=== PATIENT | female | born 1975 | race African-American/Black ===

== ENCOUNTER → 2023-01-31 10:18 | Outpatient (CLI) | payer SELFPAY ==
--- NOTE | ~2023-01-31 | US_ITS ---
Renal-Bladder ultrasound Clinical History: Abnormal findings of blood chemistry Technique: Real-time sonographic imaging of the kidneys and urinary bladder was performed. Findings: The right kidney measures 9.8 cm in length and the left kidney measures 9.2 cm. There is no hydronephrosis or renal calculus identified. Renal cortical echogenicity is mildly hyperechoic. No r enal mass lesion is identified. The urinary bladder is moderately distended at the time of this exam. No intraluminal echoes are iden tified. No abnormal wall thickening is seen. Impression: No hydronephrosis. Increased renal echogenicity suggest chronic medical renal disease. Reviewed, dictated and finalized at location . Impression: No hydronephrosis. Increased renal echogenicity suggest chronic medical renal disease.
== END ==
PROVIDERS: PCP Emergency Medicine; Visit Provider Internal Medicine Nephrology
DX: I10 Essential (primary) hypertension (principal); R79.89 Other specified abnormal findings of blood chemistry
CPT/HCPCS: 76775

== ENCOUNTER 2023-08-08 08:55 | Outpatient (CLI) | payer BC, SELFPAY ==
[2023-08-08 09:13] LABS: Basophils Percent Auto 0.3 % (0.2-1.2); Eosinophils Absolute Auto 0.3 K/mm3 (0-0.3); Eosinophils Percent Auto 3.8 % (0-4.4); Hematocrit 36.1 % (37.0-47.0); Hemoglobin 11.7 g/dL (12.0-15.0); Immature Granulocyte Absolute 0.01 K/mm3 (0.00-0.031); Immature Granulocyte Percent A 0.2 % (0-0.5); Lymphocytes Absolute Auto 1.92 K/mm3 (0.9-3.2); Lymphocytes Percent Auto 29.3 % (18.3-44.2); Mean Corpuscular HGB Conc 32.4 g/dl (32-36); Mean Corpuscular Hemoglobin 27.1 pg (26-34); Mean Corpuscular Volume 83.6 fl (80-100); Mean Platelet Volume 10.5 fl (7.4-10.4); Monocytes Absolute Auto 0.4 K/mm3 (0.1-0.6); Monocytes Percent Auto 6.7 % (2.6-8.5); Neutrophils Absolute Auto 3.9 K/mm3 (1.3-6.7); Neutrophils Percent Auto 59.7 % (45.5-73.1); Platelet Count Result 252 k/mm3 (150-375); Red Blood Count 4.32 M/mm3 (4.2-5.4); Red Cell Distribution Width 12.8 % (11.5-14.5); White Blood Count 6.6 K/mm3 (4.5-10.0)
[2023-08-08 10:18] LABS: Alanine Aminotransferase 15 U/L (6-35); Albumin Level 4.3 g/dL (3.5-5.1); Alkaline Phosphatase 52 U/L (38-126); Anion Gap 10 mmol/L (8-16); Aspartate Amino Transferase 24 U/L (14-36); Bilirubin,Total 0.6 mg/dL (0.2-1.3); Blood Urea Nitrogen 25 mg/dL (7-17); Calcium 10.1 mg/dL (8.4-10.2); Carbon Dioxide 26 mmol/L (22-30); Chloride 103 mmol/L (98-107); Estimated Glomerular Filt Rate 34; Glucose 130 mg/dL (65-110); Immunoglobulin G 833 mg/dL (700-1600); Potassium 3.5 mmol/L (3.4-5.0); Sodium 139 mmol/L (137-145)
[2023-08-08 10:22] LABS: Immunoglobulin M < 25 mg/dL (40-230)
[2023-08-08 10:34] LABS: Immunoglobulin A 1510 mg/dL (70-400)
[2023-08-10 16:33] LABS: Abnormal Protein Band 1 1.5 g/dL; Albumin 3.5 g/dL (3.8-4.8); Alpha 1 Globulin 0.3 g/dL (0.2-0.3); Alpha 2 Globulin 0.6 g/dL (0.5-0.9); Beta 1 Globulin 1.7 g/dL (0.4-0.6); Gamma Globulin 0.8 g/dL (0.8-1.7); Protein, Total 7.2 g/dL (6.1-8.1)
[2023-08-10 21:06] LABS: Kappa\\Lambda Light Chains 0.16 (0.26-1.65); Lambda Light Chain 151.2 mg/L (5.7-26.3)
== END 2023-08-08 08:56 | disposition home or self-care (01) ==
PROVIDERS: PCP Emergency Medicine; Visit Provider Internal Medicine Hematology & Oncology
DX: C90.00 Multiple myeloma not having achieved remission (principal)
CPT/HCPCS: 36415; 80053; 82784; 83883; 84155; 84165; 85025

== ENCOUNTER 2023-09-12 01:28 | Day surgery (SDC) | payer BC, SELFPAY ==
--- NOTE | ~2023-09-12 | BM_ITS ---
EXAMINATION: CCL bone marrow asp w bx diag DATE: 09/12/2023 10:10 INDICATION: Status of remission of multiple myeloma. TECHNIQUE: A time-out was performed to verify the patient's name, date of , and procedure to b e performed. The procedure including the risks, benefits, and alternatives was discussed with the pat ient. Risks discussed included bleeding and infection. The patient understood the risks and agreed to proceed. The skin overlying the left ilium was prepped and draped in usual sterile fashion. Anesth etic was administered with 1% lidocaine subcutaneously. Moderate sedation was achieved with 1 mg Vers ed IV and 100 mcg fentanyl IV. An 11 gauge needle was inserted into the ilium with fluoroscopic guid ance. Bone marrow was aspirated. An 8 gauge needle was then inserted into the ilium with fluoroscopic guidance. A core bone marrow biopsy was obtained. There were no immediate complications. Fluoroscopy exposure time was 0.0 minutes. The total number of images was 18. FINDINGS: Real-time fluoroscopy demonstrates a marker overlying the left posterior superior iliac spi ne. IMPRESSION: 1. Fluoro-guided bone marrow aspiration. 2. Fluoro-guided bone marrow core biopsy. Reviewed, dictated and finalized at location A. HMAN
[2023-09-12 07:51] VITALS: BP 184/117; PULSE 71; RESP 16; TEMP 36.8; O2SAT 100; BMI 24.1
[2023-09-12 08:45] LABS: Basophils Percent Auto 0.3 % (0.2-1.2); Eosinophils Absolute Auto 0.1 K/mm3 (0-0.3); Eosinophils Percent Auto 2.3 % (0-4.4); Hematocrit 43.2 % (37.0-47.0); Hemoglobin 13.4 g/dL (12.0-15.0); Immature Granulocyte Absolute 0.02 K/mm3 (0.00-0.031); Immature Granulocyte Percent A 0.3 % (0-0.5); Lymphocytes Absolute Auto 1.95 K/mm3 (0.9-3.2); Lymphocytes Percent Auto 31.4 % (18.3-44.2); Mean Corpuscular Hemoglobin 26.8 pg (26-34); Mean Corpuscular Volume 86.4 fl (80-100); Mean Platelet Volume 11.3 fl (7.4-10.4); Monocytes Absolute Auto 0.4 K/mm3 (0.1-0.6); Monocytes Percent Auto 6.9 % (2.6-8.5); Neutrophils Absolute Auto 3.7 K/mm3 (1.3-6.7); Neutrophils Percent Auto 58.8 % (45.5-73.1); Platelet Count Result 218 k/mm3 (150-375); Red Cell Distribution Width 13.4 % (11.5-14.5); White Blood Count 6.2 K/mm3 (4.5-10.0)
[2023-09-12 08:56] LABS: Prothrombin Time 13.6 Seconds (11.1-14.7)
--- NOTE | 2023-09-12 09:31 | WPDMODSED ---
Moderate Sedation Note-Pt Data Patient Data Diagnosis: Multiple myeloma. Present Complaint: Multiple myeloma. Procedure to be performed/Plan: Fluoro-guided bone marrow biopsy of ilium. Allergies Allergy/AdvReac Type Severity Reaction Status Date / Time No Known Allergies Allergy Verified 09/12/23 07:48 Home Medications Medication Instructions Recorded Confirmed Type drospirenone (contraceptive) 4 mg 4 mg PO DAILY 11/03/21 09/09/23 History (28) tablet (Slynd) clonidine HCl 0.3 mg tablet 0.3 mg PO BID 09/09/23 09/09/23 History hydrochlorothiazide 12.5 mg tablet 12.5 mg PO DAILY 09/09/23 09/09/23 History losartan 50 mg tablet 50 mg PO DAILY 09/09/23 09/09/23 History Sedation/Anesthesia: No previous sedation/anesthesia problems (including family history). [facility] Past Medical History Medical History Anemia Body mass index [BMI] 26.0-26.9, adult (06/14/17) Body mass index [BMI] 27.0-27.9, adult (12/27/17) Elevated glucose Encounter for screening for cardiovascular disorders Fatigue HTN (hypertension), benign Hyperglycemia Periodic health assessment, general screening, adult Vitamin D deficiency Social History Social History Smoking packs per day: 0.5 Smoking cigarettes per day: 10.0 Years smoked: 10 Smoking pack-years: 5.00 Smoking status: Former smoker Tobacco type: cigarettes Smoking end date: 10/17/12 Substance use type: does not use Current Housing: Decline to Answer Concerned About Future Housing: Decline to Answer Difficulty Paying Gas/Electric Bills: Decline to Answer Difficulty Paying for Meds: Decline to Answer Currently Unemployed: Decline to Answer Education: Decline to Answer Difficulty w/ Childcare or Family Care: Decline to Answer Living arrangements: with family Gender identity (if verbalized by the patient): Female Spiritual care concerns: No Mod Sed Physical Exam Physical Exam Pre Procedural Exam: Normal: Appearance, Lungs, Heart Rate, Heart Rhythm and Abdomen Hours since solid foods: 12 Hours since liquid intake: 12 Mallampati Classification: class II Internal Medicine - PN: Obj Da Vital Signs Vital Signs: Vital Signs - 24 hr 09/12/23 07:51 Temperature 36.8 C Pulse Rate 71 Respiratory Rate 16 Blood Pressure 184/117 H Pulse Oximetry 100 Oxygen Delivery Room Air Labs 09/12/23 07:41 Labs: Laboratory Results - last 24 hr 09/12/23 07:41 WBC 6.2 RBC 5.00 Hgb 13.4 Hct 43.2 MCV 86.4 MCH 26.8 MCHC 31.0 L RDW 13.4 Plt Count 218 MPV 11.3 H Immature Gran % (Auto) 0.3 Neut % (Auto) 58.8 Lymph % (Auto) 31.4 [place] % (Auto) 6.9 Eos % (Auto) 2.3 Baso % (Auto) 0.3 Lymph # (Auto) 1.95 [place] # (Auto) 0.4 Eos # (Auto) 0.1 Baso # (Auto) 0.0 Abs Immat Gran (auto) 0.02 Absolute Neuts (auto) 3.7 Absolute Nucleated RBC 0.0 Nucleated RBC % 0.0 PT 13.6 INR 1.0 ASA Classification/Sedation ASA Classification/Sedation ASA Class: II Emergent: No Risks: Risks, benefits and alternatives explained and patient/family accepted plan for sedation. Patient re-evaluated immediately prior to sedation.
[2023-09-12 09:51] LABS: Beta HCG Quantitative < 2.39 mIU/ML
[2023-09-12 10:15] VITALS: BP 146/94; PULSE 56; RESP 16; O2SAT 100
[2023-09-12 10:30] VITALS: BP 137/93; PULSE 52; RESP 15; O2SAT 100
[2023-09-12 10:45] VITALS: BP 131/102; PULSE 51; RESP 16; O2SAT 100
[2023-09-12 11:00] VITALS: BP 130/91; PULSE 49; RESP 10; O2SAT 100
[2023-09-12 11:15] VITALS: BP 155/98; PULSE 48; RESP 12; O2SAT 100
== END 2023-09-12 11:25 | disposition home or self-care (01) ==
PROVIDERS: PCP Emergency Medicine; Referring Provider Internal Medicine Hematology & Oncology; Visit Provider Radiology Diagnostic Radiology
DX: C90.00 Multiple myeloma not having achieved remission (principal); N18.32 Chronic kidney disease, stage 3b; I12.9 Hypertensive chronic kidney disease with stage 1 through stage 4 chronic kidney disease, or unspecified chronic kidney disease; E55.9 Vitamin D deficiency, unspecified; Z87.891 Personal history of nicotine dependence
CPT/HCPCS: 36415; 38222; 84702; 85025; 85610; 88184; 88185; 88305; 88311; 88313; 88342; J1642; J2250; J3010; J7040

== ENCOUNTER 2023-09-22 07:15 | Outpatient (CLI) | payer BC, SELFPAY ==
--- NOTE | ~2023-09-22 | PE_ITS ---
EXAMINATION: PET skull to mid thigh DATE: 09/22/2023 10:36 INDICATION: Multiple myeloma, remission status unspecified. TECHNIQUE: Blood glucose level was 136 mg/dL. 9.961 mCi of 18-fluorodeoxyglucose (18-FDG) was adminis tered i.v. Low dose computed tomography (CT) images were acquired from the base of the brain to the p roximal thighs for attenuation correction and anatomic localization. Automated exposure control was e mployed. Dose-length product (DLP) was 705 mGy-cm. Positron emission tomography (PET) images were acq uired in the same distribution. COMPARISON: None FINDINGS: Head/neck: There are no pathologically enlarged lymph nodes. There is a 3.1 cm nodule in left thyroid lobe with maximum SUV of 4.1. There is no lytic lesion of bone. Chest: There is no pneumonia or pleural effusion. The heart size is normal. No pericardial effusion. There is no lytic lesion of bone. Abdomen/pelvis/proximal thighs: The liver, gallbladder, spleen, pancreas, adrenal glands, and kidneys are normal. There are no dilated loops of bowel. The appendix is normal. There are no pathologically enlarged lymph nodes. There is no ascites. There is no lytic lesion of bone. IMPRESSION: 1. No evidence of multiple myeloma. 2. 3.1 cm left thyroid lobe with increased activity, which may be benign or malignant. Ultrasound-almaz ded fine-needle aspiration is recommended. Reviewed, dictated and finalized at location E. ENTER SUPERVISOR IMPRESSION: 1. No evidence of multiple myeloma. 2. 3.1 cm left thyroid lobe with increased activity, which may be benign or mal ignant. Ultrasound-guided fine-needle aspiration is recommended.
[2023-09-22 08:06] LABS: Glucose Point of Care 136 mg/dl (65-105)
== END 2023-09-22 07:16 | disposition home or self-care (01) ==
PROVIDERS: PCP Emergency Medicine; Visit Provider Internal Medicine Hematology & Oncology
DX: C90.00 Multiple myeloma not having achieved remission (principal)
CPT/HCPCS: 78815; A9552

== ENCOUNTER 2023-10-31 12:32 | Outpatient (CLI) | payer BC, SELFPAY ==
--- NOTE | ~2023-10-31 | US_ITS ---
EXAMINATION: US FNA w image guidance DATE: 10/31/2023 13:53 INDICATION: Thyroid nodule TECHNIQUE: A time-out was performed to verify the patient's name, date of , and procedure to be performed . The procedure and its benefits and risks were discussed with the patient. Risks specifically discus sed included bleeding and infection. The patient understood the risks and agreed to proceed. The neck was prepped and draped in the usual sterile manner. 4 mL 1% lidocaine was used for local anesthesia . 8 passes were made with a 25G needle into the lesion. Appropriate needle location was documented with continuous sonographic guidance. A sterile bandage was applied. There were no immediate compli cations. FINDINGS: Right thyroid lobe measures 5.0 x 1.8 x 2.1 cm. 30 isthmus measures 3 to 4 mm in thickness. The left thyroid lobe measures 5.8 x 2.8 x 3.2 cm. 4.1 x 2.8 x 2.9 cm solid hypoechoic left thyroid nodule whi ch is wider than tall with lobular margins and a few punctate echogenic foci (TI-RADS 5, highly suspi cious , FNA if >=1.0 cm, annual followup is >0.5 cm). There is a 6 mm solid hypoechoic nodule with sm ooth to ill-defined margins and without echogenic foci at the left side of the thyroid isthmus (TI-RA DS 4, moderately suspicious , FNA if >=1.5 cm, annual followup is >=1 cm). Subsequent images demonstr ate biopsy needles advanced into the 4.1 cm TI RADS 5 left thyroid mass. IMPRESSION: 1. Successful ultrasound-guided fine needle aspiration of a 4.1 cm TI RADS 5 left thyroid mass. Reviewed, dictated and finalized at location A. RER IMPRESSION: 1. Successful ultrasound-guided fine needle aspiration of a 4.1 cm TI RADS 5 l eft thyroid mass.
== END 2023-10-31 12:33 | disposition home or self-care (01) ==
LOC: ANHIMG 12:33
PROVIDERS: PCP Emergency Medicine; Visit Provider Internal Medicine Hematology & Oncology
DX: E04.1 Nontoxic single thyroid nodule (principal)
CPT/HCPCS: 10005; 88172; 88173; 88305

== ENCOUNTER 2024-01-02 09:52 | Outpatient (CLI) | payer BC, SELFPAY ==
[2024-01-02 10:16] LABS: Basophils Percent Auto 0.3 % (0.2-1.2); Eosinophils Absolute Auto 0.1 K/mm3 (0-0.3); Eosinophils Percent Auto 2.1 % (0-4.4); Hematocrit 35.8 % (37.0-47.0); Hemoglobin 11.7 g/dL (12.0-15.0); Immature Granulocyte Absolute 0.01 K/mm3 (0.00-0.031); Immature Granulocyte Percent A 0.2 % (0-0.5); Lymphocytes Absolute Auto 2.11 K/mm3 (0.9-3.2); Lymphocytes Percent Auto 32.4 % (18.3-44.2); Mean Corpuscular HGB Conc 32.7 g/dl (32-36); Mean Corpuscular Hemoglobin 27.1 pg (26-34); Mean Corpuscular Volume 83.1 fl (80-100); Mean Platelet Volume 10.5 fl (7.4-10.4); Monocytes Absolute Auto 0.5 K/mm3 (0.1-0.6); Monocytes Percent Auto 7.4 % (2.6-8.5); Neutrophils Absolute Auto 3.8 K/mm3 (1.3-6.7); Neutrophils Percent Auto 57.6 % (45.5-73.1); Platelet Count Result 231 k/mm3 (150-375); Red Blood Count 4.31 M/mm3 (4.2-5.4); Red Cell Distribution Width 13.2 % (11.5-14.5); White Blood Count 6.5 K/mm3 (4.5-10.0)
[2024-01-02 14:10] LABS: Alanine Aminotransferase 14 U/L (6-35); Albumin Level 4.1 g/dL (3.5-5.1); Alkaline Phosphatase 49 U/L (38-126); Anion Gap 8 mmol/L (8-16); Aspartate Amino Transferase 21 U/L (14-36); Bilirubin,Total 0.7 mg/dL (0.2-1.3); Blood Urea Nitrogen 27 mg/dL (7-17); Calcium 10.8 mg/dL (8.4-10.2); Carbon Dioxide 26 mmol/L (22-30); Chloride 106 mmol/L (98-107); Estimated Glomerular Filt Rate 30; Glucose 136 mg/dL (65-110); Potassium 4.2 mmol/L (3.4-5.0); Sodium 140 mmol/L (137-145)
[2024-01-02 14:45] LABS: Immunoglobulin G 846 mg/dL (700-1600)
[2024-01-02 15:38] LABS: Immunoglobulin A 1385 mg/dL (70-400); Immunoglobulin M < 25 mg/dL (40-230)
[2024-01-05 12:08] LABS: Kappa\\Lambda Light Chains 0.13 (0.26-1.65); Lambda Light Chain 156.7 mg/L (5.7-26.3)
[2024-01-05 12:29] LABS: Abnormal Protein Band 1 1.5 g/dL; Albumin 3.6 g/dL (3.8-4.8); Alpha 1 Globulin 0.3 g/dL (0.2-0.3); Alpha 2 Globulin 0.6 g/dL (0.5-0.9); Beta 1 Globulin 1.8 g/dL (0.4-0.6); Gamma Globulin 0.7 g/dL (0.8-1.7); Protein, Total 7.4 g/dL (6.1-8.1)
== END 2024-01-02 09:53 | disposition home or self-care (01) ==
LOC: ANHLAB 09:54
PROVIDERS: PCP Emergency Medicine; Visit Provider Internal Medicine Hematology & Oncology
DX: C90.00 Multiple myeloma not having achieved remission (principal)
CPT/HCPCS: 36415; 80053; 82784; 83883; 84155; 84165; 85025

== ENCOUNTER 2024-03-26 09:20 | Outpatient (CLI) | payer BC, SELFPAY ==
[2024-03-26 09:37] LABS: Basophils Percent Auto 0.5 % (0.2-1.2); Eosinophils Absolute Auto 0.1 K/mm3 (0-0.3); Eosinophils Percent Auto 2.1 % (0-4.4); Hematocrit 34.8 % (37.0-47.0); Hemoglobin 11.5 g/dL (12.0-15.0); Immature Granulocyte Absolute 0.01 K/mm3 (0.00-0.031); Immature Granulocyte Percent A 0.2 % (0-0.5); Lymphocytes Absolute Auto 2.18 K/mm3 (0.9-3.2); Lymphocytes Percent Auto 33.3 % (18.3-44.2); Mean Corpuscular Hemoglobin 27.5 pg (26-34); Mean Corpuscular Volume 83.3 fl (80-100); Mean Platelet Volume 10.5 fl (7.4-10.4); Monocytes Absolute Auto 0.6 K/mm3 (0.1-0.6); Monocytes Percent Auto 8.6 % (2.6-8.5); Neutrophils Absolute Auto 3.6 K/mm3 (1.3-6.7); Neutrophils Percent Auto 55.3 % (45.5-73.1); Platelet Count Result 218 k/mm3 (150-375); Red Blood Count 4.18 M/mm3 (4.2-5.4); Red Cell Distribution Width 12.8 % (11.5-14.5); White Blood Count 6.5 K/mm3 (4.5-10.0)
[2024-03-26 10:42] LABS: Alanine Aminotransferase 12 U/L (6-35); Albumin Level 4.4 g/dL (3.5-5.1); Alkaline Phosphatase 48 U/L (38-126); Anion Gap 8 mmol/L (4-12); Aspartate Amino Transferase 23 U/L (14-36); Bilirubin,Total 0.5 mg/dL (0.2-1.3); Blood Urea Nitrogen 16 mg/dL (7-17); Calcium 10.4 mg/dL (8.4-10.2); Carbon Dioxide 25 mmol/L (22-30); Chloride 106 mmol/L (98-107); Estimated Glomerular Filt Rate 34; Glucose 136 mg/dL (65-110); Potassium 4.1 mmol/L (3.4-5.0); Sodium 139 mmol/L (137-145)
[2024-03-26 11:28] LABS: Immunoglobulin G 808 mg/dL (700-1600)
[2024-03-26 11:32] LABS: Immunoglobulin A 1555 mg/dL (70-400); Immunoglobulin M < 25 mg/dL (40-230)
[2024-03-27 11:58] LABS: Protein, Total 6.9 g/dL (6.1-8.1)
[2024-03-27 14:24] LABS: Kappa\\Lambda Light Chains 0.12 (0.26-1.65); Lambda Light Chain 171.5 mg/L (5.7-26.3)
[2024-03-27 15:59] LABS: Abnormal Protein Band 1 1.6 g/dL (NONE DETECTED); Albumin 3.3 g/dL (3.8-4.8); Alpha 1 Globulin 0.3 g/dL (0.2-0.3); Alpha 2 Globulin 0.6 g/dL (0.5-0.9); Beta 1 Globulin 1.7 g/dL (0.4-0.6); Gamma Globulin 0.7 g/dL (0.8-1.7)
== END 2024-03-26 09:21 | disposition home or self-care (01) ==
LOC: ANHLAB 09:21
PROVIDERS: PCP Emergency Medicine; Visit Provider Internal Medicine Hematology & Oncology
DX: C90.00 Multiple myeloma not having achieved remission (principal)
CPT/HCPCS: 36415; 80053; 82784; 83883; 84155; 84165; 85025

== ENCOUNTER 2024-07-02 08:37 | Outpatient (CLI) | payer BC, SELFPAY ==
[2024-07-02 08:56] LABS: Basophils Percent Auto 0.5 % (0.2-1.2); Eosinophils Absolute Auto 0.2 K/mm3 (0-0.3); Eosinophils Percent Auto 2.8 % (0-4.4); Hematocrit 37.8 % (37.0-47.0); Immature Granulocyte Absolute 0.02 K/mm3 (0.00-0.031); Immature Granulocyte Percent A 0.3 % (0-0.5); Lymphocytes Absolute Auto 1.87 K/mm3 (0.9-3.2); Lymphocytes Percent Auto 30.8 % (18.3-44.2); Mean Corpuscular HGB Conc 31.7 g/dl (32-36); Mean Corpuscular Hemoglobin 27.1 pg (26-34); Mean Corpuscular Volume 85.5 fl (80-100); Monocytes Absolute Auto 0.6 K/mm3 (0.1-0.6); Monocytes Percent Auto 9.1 % (2.6-8.5); Neutrophils Absolute Auto 3.4 K/mm3 (1.3-6.7); Neutrophils Percent Auto 56.5 % (45.5-73.1); Platelet Count Result 226 k/mm3 (150-375); Red Blood Count 4.42 M/mm3 (4.2-5.4); Red Cell Distribution Width 13.3 % (11.5-14.5); White Blood Count 6.1 K/mm3 (4.5-10.0)
[2024-07-02 11:02] LABS: Alanine Aminotransferase 75 U/L (6-35); Albumin Level 4.1 g/dL (3.5-5.1); Alkaline Phosphatase 46 U/L (38-126); Anion Gap 9 mmol/L (4-12); Aspartate Amino Transferase 63 U/L (14-36); Bilirubin,Total 0.6 mg/dL (0.2-1.3); Blood Urea Nitrogen 16 mg/dL (7-17); Calcium 9.7 mg/dL (8.4-10.2); Carbon Dioxide 27 mmol/L (22-30); Chloride 100 mmol/L (98-107); Estimated Glomerular Filt Rate 42; Glucose 125 mg/dL (65-110); Potassium 3.9 mmol/L (3.4-5.0); Sodium 136 mmol/L (137-145)
[2024-07-02 11:47] LABS: Immunoglobulin G 754 mg/dL (700-1600)
[2024-07-02 12:09] LABS: Immunoglobulin A 1571 mg/dL (70-400); Immunoglobulin M < 25 mg/dL (40-230)
[2024-07-04 12:09] LABS: Kappa\\Lambda Light Chains 0.09 (0.26-1.65); Lambda Light Chain 237.6 mg/L (5.7-26.3)
[2024-07-05 03:33] LABS: Protein, Total 6.8 g/dL (6.1-8.1)
[2024-07-05 15:24] LABS: Abnormal Protein Band 1 1.4 g/dL (NONE DETECTED); Albumin 3.3 g/dL (3.8-4.8); Alpha 1 Globulin 0.3 g/dL (0.2-0.3); Alpha 2 Globulin 0.6 g/dL (0.5-0.9); Beta 1 Globulin 1.6 g/dL (0.4-0.6); Gamma Globulin 0.7 g/dL (0.8-1.7)
== END 2024-07-02 08:38 | disposition home or self-care (01) ==
LOC: ANHLAB 08:38
PROVIDERS: PCP Emergency Medicine; Visit Provider Internal Medicine Hematology & Oncology
DX: C90.00 Multiple myeloma not having achieved remission (principal)
CPT/HCPCS: 36415; 80053; 82784; 83883; 84155; 84165; 85025

== ENCOUNTER 2024-12-31 08:38 | Outpatient (CLI) | payer BC, SELFPAY ==
[2024-12-31 08:57] LABS: Basophils Percent Auto 0.5 % (0.2-1.2); Eosinophils Absolute Auto 0.2 K/mm3 (0-0.3); Eosinophils Percent Auto 3.9 % (0-4.4); Hematocrit 44.4 % (37.0-47.0); Hemoglobin 14.5 g/dL (12.0-15.0); Immature Granulocyte Absolute 0.01 K/mm3 (0.00-0.031); Immature Granulocyte Percent A 0.2 % (0-0.5); Lymphocytes Absolute Auto 1.85 K/mm3 (0.9-3.2); Lymphocytes Percent Auto 32.7 % (18.3-44.2); Mean Corpuscular HGB Conc 32.7 g/dl (32-36); Mean Corpuscular Hemoglobin 26.9 pg (26-34); Mean Corpuscular Volume 82.4 fl (80-100); Mean Platelet Volume 10.8 fl (7.4-10.4); Monocytes Absolute Auto 0.5 K/mm3 (0.1-0.6); Monocytes Percent Auto 8.3 % (2.6-8.5); Neutrophils Absolute Auto 3.1 K/mm3 (1.3-6.7); Neutrophils Percent Auto 54.4 % (45.5-73.1); Platelet Count Result 206 k/mm3 (150-375); Red Blood Count 5.39 M/mm3 (4.2-5.4); Red Cell Distribution Width 13.4 % (11.5-14.5); White Blood Count 5.7 K/mm3 (4.5-10.0)
--- OUTSIDE RECORDS SUMMARY | 2024-12-31 09:01 | XMS_ITS | Data Portability ---
Author Organization [facility] [place] Address [address] [place] [address] Care Team Providers Care Cyber Workforce Developer And Manager Name Role Phone KENZIE LARA Primary Care Provider [phone] Assessment Encounter Date Assessment Date Assessment LastModified by Organization Details LastModified Time 04/01/2021 04/01/2021 Annual gynecological exam performed. Patient will come back in a year unless there are new symptoms. Suggest Calcium with Vitamin D if not eating in diet. Patient advised to get annual flu shot. Recommend yearly physicals and preform monthly breast exams. Genetic testing is available for patients with family history of cancer. Engage in safe sexual practices, use condoms. Encouraged to have daily exercise. Avoid tobacco and illicit drugs, moderation of alcohol. If BMI greater than 25 dietary consult advised. If you have any questions please call or email. slynd #4 samples, if works may have rf until next wwe, mammogram order given and encouraged Not available 04/01/2021 10:07:49 04/28/2021 04/28/2021 noel well, f/u pending pathology Not available 04/28/2021 10:03:46 05/10/2022 05/10/2022 Annual gynecological exam performed. Patient will come back in a year unless there are new symptoms. [email or web address] Not available 05/10/2022 10:42:15 05/23/2023 05/23/2023 Annual gynecological exam performed. Patient will come back in a year unless there are new symptoms. [email or web address] Not available 05/23/2023 10:45:57 05/28/2024 05/28/2024 Annual gynecological exam performed. Patient will come back in a year unless there are new symptoms. [email or web address] Not available 05/28/2024 09:34:32 Plan of Treatment Reminders Order Date Submit Date Provider Last Modified By Organization Details Last Modified Time Details Appointments None recorded. Lab None recorded. Referral None recorded. Procedures None recorded. Surgeries None recorded. Imaging MAMMO, screening, digital, bilateral 2023 024 FRANCES [facility], [address], [place], [address], 4 04:02:24 MAMMO, screening, digital, bilateral [email or web address] [place] [address], [address], [place], [address], 4 16:22:48 Medication Orders None recorded. Patient TargetsNo targets recorded. Patient InstructionsNo instructions recorded. Reason for Referral None Reported. Results Created Date Observation Date Name Description Value Unit Range Abnormal Flag Note LastModifiedBy Organization Detail LastModifiedTime 04/01/20 21 04/01/2021 pap, IG + HR HPV image guided Pap, HPV regardless of Pap result SEE RESULT S BELOW CASE REPOR T: Cytol ogy Gynec ologi sanjay Repor t Case: [id number] Autho rylan mclaughlin Provi zach: Taty Petit NP Colle cted: 04/01 1330 Order ing Locat ion: [place] Patho logy Recei janki: 04/02 0151 First Scree n: Strut z, Zafar am, CT Patho logis t: Miroslava Ayala MD Speci men: Scree jose Pap - Image d, Cervi x STATE MENT OF ADEQU ACY: Satis facto ry for evalu ation Trans forma tion zone compo nent absen t FINAL DIAGN OSIS: Negat elvie for Squam ous Intra epith elial Lesio n Endom etria l cells in a woman over 45 years of age Elect josue christianson rita d by Miroslava Ayala MD on 2020 at 2:42 PM ----- ----- ----- ----- ----- ----- ----- ----- ----- ----- ----- ----- ----- ----- ----- ----- ----- ---- HPV RESUL TS: HPV mRNA E6/E7 : No HPV mRNA Detec lindsay NOTE: This high risk HPV mRNA assay detec ts fourt een high- risk HPV types (16, 18, 31, 33, 35, 39, 45, 51, 52, 56, 58, 59, 66, 68) witho ut diffe renti ation . CHART ABLE COMME NT: Note: This speci men was revie wed by a Cytot echno logis t and/o r Patho logis t (as indic ated in this repor t) after evalu ation using the Thinp rep Imagi ng Syste m. CLINI SANJAY INFOR MATIO N: Menst rual Statu s: LMP (if appli cable ): 2020 Clini sanjay Histo ry/Pr eviou s Pap: Type of Neopl domenico (if appli cable ): Other Histo ry: Hormo kade (if appli cable ): PAP EDUCA PATRICK L NOTE: Endom etria l cells after age 45, parti cular ly out of phase or after menop ause, may be assoc iated with zehra n endom etriu m, hormo nal alter ation s and less commo nly, endom etria l/chehalis rine abnor malit ies. Clini sanjay corre galilea n is recom ying d. Not Available [facility] (Lab) [address], [place], [address], 04/03/2021 15:45:27 04/28/20 21 04/28/2021 SURGI SANJAY PATHO LOGY surgical pathology ([facility]) SEE RESULT S BELOW CASE REPOR T: Surgi sanjay Patho logy Repor t Case: [id number] Autho rylan Zhoui zach: Taty Petit NP Colle cted: 04/28 1333 Order ing Locat ion: [place] Patho logy Recei janki: 04/28 2353 Patho logis t: Edna Morris MD Speci men: Endom etriu m, EMB BX FINAL DIAGN OSIS: Endom etriu m, biops y: -Inac tive endom etriu m, negat elvie for hyper plasi a or carci noma. Elect josue salinas d by Edna Morris MD on 2020 at 11:00 AM ----- ----- ----- ----- ----- ----- ----- ----- ----- ----- ----- ----- ----- ----- ----- ----- ----- ---- CLINI SANJAY INFOR MATIO N: not provi ded MICRO SCOPI C DESCR IPTIO N: A micro scopi c exami natio n was perfo rmed. GROSS DESCR IPTIO N: A. Endom etriu m. The speci men is label ed with the patie nt's name and demog raphi cs only. Recei janki in forma junito is a 1.2 x 0.3 x 0.1 [address] [place] tissu e and mucus . The entir e speci men is submi tted in one casse tte. Gross ed by Ana Erickson on Not Available [facility] (Lab) [address], [place], [address], 04/29/2021 12:04:08 04/28/20 21 04/28/2021 pregn brad test, urine HCG negati ve Not Available [place] [address], [place], [address], 04/28/2021 09:37:58 05/10/20 22 05/10/2022 IMAGE GUIDE D PAP AND HPV REGAR DLESS image guided Pap, HPV regardless of Pap result SEE RESULT S BELOW CASE REPOR T: Cytol ogy Gynec ologi sanjay Repor t Case: [id number] Autho rylan mclaughlin Provi zach: Ainsley holder , Randolph Krishna cted: 05/10 1742 COMMUNICATIONS INTERN Order ing Locat ion: [place] Patho logy Recei janki: 05/11 0141 First Scree n: Rupal Kwok, CT Speci men: Rao garcia Pap - Image d, Cervi x STATE MENT OF ADEQU ACY: Satis facto ry for evalu ation Trans forma tion zone compo nent prese nt FINAL DIAGN OSIS: Negat elvie for Intra epith elial Lesio n or Neal keith (NIL) . Elect josue christianson rita d by Rupal Kwok, CT on 2021 at 7:47 AM ----- ----- ----- ----- ----- ----- ----- ----- ----- ----- ----- ----- ----- ----- ----- ----- ----- ---- HPV RESUL TS: HPV mRNA E6/E7 : No HPV mRNA Detec lindsay NOTE: This high risk HPV mRNA assay detec ts fourt een high- risk HPV types (16, 18, 31, 33, 35, 39, 45, 51, 52, 56, 58, 59, 66, 68) witho ut diffe renti ation . COMME NT: Note: This speci men was revie wed by a Cytot echno logis t and/o r Patho logis t (as indic ated in this repor t) after evalu ation using the Thinp rep Imagi ng Syste m. CLINI SANJAY INFOR MATIO N: Menst rual Statu s: LMP (if appli cable ): Clini sanjay Histo ry/Pr eviou s Pap: Type of Neopl domenico (if appli cable ): Signi fican t Clini asnjay Findi ngs: Other Histo ry: Hormo kade (if appli cable ): PAP EDUCA PATRICK L NOTE: The Pap Test is a scree jose test with an inher ent false negat elvie rate. Liqui d-bas ed sampl ing may decre ase, but will not elimi todd, false negat elvie resul ts. A negat elvie resul t does not precl ude the prese nce and/o r devel opmen t of disea se, since the prese nce of abnor mal cells in the sampl e depen ds on the locat ion of the lesio n and sampl ing techn ique. Rose nued regul ar scree jose is the best metho d of cance r preve ntion . If repor lindsay cytol ogic findi ng do not corre late with physi sanjay and/o r histo rical findi ngs, furth er inves tigat ion is recom ying d, as clini eliane medina nted. Not Available [facility] Infectious Disease [address] [place] [address], [address], 05/14/2022 09:58:01 Result Notes None recorded. Problems Name Problem SNOMED Code Status Onset Date Resolution Date Notes Provider Name and Address Organization Details Recorded Time SNOMED CT Concept Completed 201504/01/2021 Encntr for buttonhole tacker exam (general ) (routine ) w/o abn findings ;Practic e ID: 0001 Azul kaplan [facility] 1 10:00:06 Screenin g for malignan t neoplasm of rectum Completed 201504/01/2021 Encounte r for screenin g for malignan t neoplasm of rectum;P ractice ID: 0001 Azul kaplan [facility] 1 09:59:59 Trichomo nal vulvovag initis [id number] Completed 201604/01/2021 Trichomo nal vulvovag initis;P ractice ID: 0001 Azul kaplan [facility] 1 10:00:14 Syphilis test finding [id number] Completed 201604/01/2021 Encntr screen for infectio ns w sexl mode of transmis s;Practi ce ID: 0001 Azul kaplan, [facility] 10:00:11 Abnormal uterine bleeding [id number] 100 Completed 201704/01/2021 Other specifie d abnormal uterine and vaginal bleeding ;Practic e ID: 0001 Azul kaplan, [facility] 09:59:24 Finding of menstrua l bleeding Completed 201704/01/2021 Excessiv e and frequent menstrua tion with regular cycle;Pr actice ID: 0001 Azul kaplan [facility] 10:00:19 Insertio n of intraute rine contrace ptive device Completed 201704/28/2021 Encounte r for insertio n of intraute rine contrace ptive device;P ractice ID: 0001 Azul kaplan, [facility] 09:30:05 Pregnanc y test negative [id number] Completed 201704/01/2021 Encounte r for pregnanc y test, result negative ;Practic e ID: 0001 Azul Wynn [facility] 09:59:51 Disorder of intraute rine contrace ptive device Completed 201904/28/2021 [facility] compl of intraute rine contrace ptive device, init encntr;P ractice ID: 0001 Azul Wynn [facility] 09:30:03 Dysfunct ional uterine bleeding Completed 201204/01/2021 Other disorder s of menstrua tion and other abnormal bleeding from female genital tract;Re corded Elsewher e: No Locat ion: Trae leigh [facility] S ource: EHR Laborer [place] zonia: N Practi ce ID: 0001 Papito lable Time: 11:15:00 AM Azul Wynn eusebio, [facility] 09:59:37 Anemia 244949035 Completed 201704/01/2021 Anemia;R ecorded Elsewher e: No Locat ion: [facility] S ource: E[facility] Lab[facility] [place] zonia: N Practi ce ID: 0001 Papito lable Time: 10:10:00 AM Azul Wynn eusebio, [facility] 09:59:26 Speciali zed medical examinat ion Completed 201104/01/2021 Routine gynecolo gical examinat ion;Prac rosie ID: 0001 Azul Wynn [facility], [facility] 10:00:08 Screenin g for malignan t neoplasm of cervix Completed 201104/01/2021 Pap Smear;Pr actice ID: 0001 Azul Wynn [facility], [facility] 09:59:56 Premenop ausal menorrha miguel Completed 201204/01/2021 Premenop ausal menorrha miguel;Prac rosie ID: 0001 Azul Wynn [facility], [facility] 09:59:54 Uses IUD (intraut erine device) contrace ption [id number] Completed 201204/01/2021 Surveill ance of intraute rine contrace ptive device;P ractice ID: 0001 Azulzeina Wynn [facility], [facility] 09:59:[address] Concept Completed 201604/01/2021 Encntr for general adult medical exam w/o abnormal findings ;Recorde d Elsewher e: No Locat ion: [facility] S ource: [facility] [place] zonia: N Practi ce ID: 0001 Papito lable Time: 09:30:00 AM Azul kaplan [facility] 1 10:00:01 Imaging of abdomen abnormal 921817109 Completed 201904/01/2021 Abn findings on dx imaging of abd regions, inc retroper iton;Rec orded Elsewher e: No Locat ion: [facility] S ource: [facility] [place] zonia: N Practi ce ID: 0001 Papito lable Time: 03:06:45 PM Azul Wynn [facility] 1 09:59:42 Finding of pattern of menstrua l cycle 438233473 Completed 201904/01/2021 Menometr orrhagia ;Recorde d Elsewher e: No Locat ion: [facility] N Renettati ce ID: 0001 Papito lable Time: 08:45:00 AM Azul Wynn [facility] 1 09:59:40 Problem Notes None recorded. Procedures Surgical History Date Name Laterality Status Provider Name and Address Organization Details Recorded Time 04/28/20 21 Endometrial Biopsy completed Taty Rojo CNM [address], [place], [address], [facility] 04/28/2021 10:02:44 04/28/20 21 endometrial biopsy completed Azul Wynn [facility] 04/28/2021 09:31:00 11/25/19 18 endometrial biopsy completed Azulzeina Wynn [facility] 07/22/2020 13:53:08 Imaging Results None recorded. Procedure Notes None recorded. Medical Equipment None Reported. Allergies No known drug allergies Medications Name Sig Start Date Stop Date Status Note LastModified by Organization Details LastModified Time losartan 50 mg tablet TAKE 1 TABLET BY MOUTH ONCE DAILY active Not Available Not Available No t Available clonidine 0.1 mg/24 hr weekly transderm al patch apply 1 patch by transder mal route every week 04/01 completed Prescrib ed Elsewher e: Yes Loca tion: [facility] M odify By: alvarado tz Encou nter DateTime : 11/20/19 12 06:34:49 PM Not Available Not Available Not Available clonidine HCl 0.3 mg tablet TAKE 1 TABLET BY MOUTH ONCE DAILY IN THE MORNING AND 1/2 (ONE-SATURNINO F) ONCE DAILY NIGHTLY active Not Available Not Available No t Available amlodipin e 2.5 mg tablet take 1 tablet by oral route every day 09/12 completed Prescrib ed Elsewher e: Yes Loca tion: [facility] odify By: nila Leigh ncounter DateTime : 11/20/19 12 06:34:49 PM Not Available Not Available Not Available potassium 99 mg tablet 11/23 completed Prescrib ed Elsewher e: Yes Loca tion: [facility] odify By: verito Leigh ncounter DateTime : 11/20/19 12 06:34:49 PM Not Available Not Available Not Available amoxicill in 875 mg tablet TAKE 1 TABLET BY MOUTH TWICE DAILY UNTIL ALL TAKEN 04/01 completed Not Available Not Available Not Available Metrogel Vaginal 0.75 % (37.5 mg/5 gram) insert 1 applicat orful (37.5MG) by vaginal route every day at bedtime 02/13 completed Prescrib ed Elsewher e: No Locat ion: [facility] odify By: darinel mccann DateTime : 01/03/20 13 01:47:02 PM Not Available Not Available Not Available Flagyl 500 mg tablet take 4 tablets by mouth at one time 06/10 completed Prescrib ed Elsewher e: No Locat ion: [facility] odify By: verito kentuntdarek DateTime : 06/09/20 17 02:38:52 PM Not Available Not Available Not Available losartan 25 mg tablet take 1 tablet by oral route every day 04/01 completed Prescrib ed Elsewher e: Yes Loca tion: [facility] odify By: nila brannon DateTime : 09/12/20 18 09:30:00 AM Not Available Not Available Not Available Provera 10 mg tablet take 1 tablet by oral route 2 times every day until bleeding subsides 09/12 completed Prescrib ed Elsewher e: No Locat ion: [facility] odify By: nila brannon DateTime : 11/25/19 18 10:10:06 AM Not Available Not Available Not Available norethind renay (contrace ptive) 0.35 mg tablet TAKE 1 TABLET BY MOUTH ONCE DAILY 06/18 completed Switched to Slynd Not Available Not Available Not Available lisinopri l 2.5 mg tablet take 1 tablet by oral route every day 09/12 completed Prescrib ed Elsewher e: Yes Loca tion: [facility] odify By: nila brannon DateTime : 11/23/19 12 10:45:00 AM Not Available Not Available Not Available hydrochlo rothiazid e 12.5 mg tablet TAKE 1 TABLET BY MOUTH ONCE DAILY active Not Available Not Available No t Available Slynd 4 mg (28) tablet TAKE 1 TABLET BY MOUTH EVERY DAY 05/30 completed Not Available Not Available Not Available Vitals Date Recorded Body height Body mass index (BMI) Body weight Systolic blood pressure Diastolic blood pressure Systolic blood pressure Diastolic blood pressure Provider Name and Address Organization Details Last Updated DateTime 1 166.37 cm 28.4 kg/m2 31527.4 8 g 190 mm[Hg] 126 mm[Hg] 160 mm[Hg] 120 mm[Hg] Azul Wynn [facility] 1 09:58:13 Date Recorded Body height Body mass index (BMI) Body weight Systolic blood pressure Diastolic blood pressure Systolic blood pressure Diastolic blood pressure Provider Name and Address Organization Details Last Updated DateTime 1 166.37 cm 28 kg/m2 63274.3 g 192 mm[Hg] 123 mm[Hg] 180 mm[Hg] 100 mm[Hg] Azul Wynn [facility] 1 09:36:39 Date Recorded Body height Body mass index (BMI) Body weight Systolic blood pressure Diastolic blood pressure Provider Name and Address Organization Details Last Updated DateTime 05/10/2022 166.37 cm 26.9 kg/m2 46892.15 g 126 mm[Hg] 68 mm[Hg] Corina Chowdhury [facility] 2 10:42:55 Date Recorded Body height Body mass index (BMI) Body weight Systolic blood pressure Diastolic blood pressure Provider Name and Address Organization Details Last Updated DateTime 05/23/2023 166.37 cm 25.2 kg/m2 19811.22 g 124 mm[Hg] 84 mm[Hg] Aileen Glenna [facility] 3 10:46:21 Date Recorded Body height Body mass index (BMI) Body weight Systolic blood pressure Diastolic blood pressure Provider Name and Address Organization Details Last Updated DateTime 05/28/2024 165.1 cm 25.8 kg/m2 01991.82 g 134 mm[Hg] 84 mm[Hg] Mamie Jimenez [facility] 4 09:50:51 Social History Question Answer Notes LastModified by Organizat ion Details LastModified Time Tobacco Smoking Status Former Smoker Aileen Glenna [facility] 05/23/2023 10:46:42 Do You Have An Advance Directive? Yes [email or web address] Information not available 04/01/2021 What Is Your Level Of Alcohol Consumption? None [email or web address] Information not available 04/01/2021 Are You Blind Or Do You Have Difficulty Seeing? No [email or web address] Information not available 04/01/2021 What Is Your Level Of Caffeine Consumption? Moderate [email or web address] Information not available 04/01/2021 In The 14 Days Before Symptom Onset, Have You Had Close Contact With A Laboratory-confir med COVID-19 While That Case Was Ill? No [email or web address] Information not available 04/01/2021 In The 14 Days Before Symptom Onset, Have You Had Close Contact With A Person Who Is Under Investigation For COVID-19 While That Person Was Ill? No [email or web address] Information not available 04/01/2021 Have You Been To An Area Known To Be High Risk For COVID-19? No [email or web address] Information not available 04/01/2021 Are You Deaf Or Do You Have Serious Difficulty Hearing? No [email or web address] Information not available 04/01/2021 What Type Of Diet Are You Following? REGULAR [email or web address] Information not available 04/01/2021 Do You Or Have You Ever Used E-cigarettes Or Vape? Never Used Electronic Cigarettes Information not available 05/23/2023 What Is The Highest Grade Or Level Of School You Have Completed Or The Highest Degree You Have Received? RX04444-4 [email or web address] Information not available 04/01/2021 What Is Your Occupation? [employer] Information not available 05/23/2023 Are There Any Guns Present In Your Home? Yes [email or web address] Information not available 04/01/2021 What Was The Date Of Your Most Recent Tobacco Screening? 04/28/2021 Information not available 05/23/2023 Do You Use Protection During Sex? Usually [email or web address] Information not available 04/01/2021 Do You Use Your Seat Belt Or Car Seat Routinely? Yes [email or web address] Information not available 04/01/2021 Do You Have Smoke And Carbon Monoxide Detectors In Your Home? Yes [email or web address] Information not available 04/01/2021 Do You Or Have You Ever Used Smokeless Tobacco? Never Used Smokeless Tobacco Information not available 05/23/2023 How Much Tobacco Do You Smoke? No [email or web address] Information not available 07/22/2020 Do You Feel Stressed (tense, Restless, Nervous, Or Anxious, Or Unable To Sleep At Night)? [id number] Information not available 05/23/2023 Do You Use Any Illicit Or Recreational Drugs? No [email or web address] Information not available 04/01/2021 Do You Use Sunscreen Routinely? No [email or web address] Information not available 04/01/2021 Have You Used IV Drugs? No [email or web address] Information not available 04/01/2021 Sex: Unknown Functional Status Question Answer Note LastModified by Organizat ion Details LastModified Time Do you have difficulty walking or climbing stairs? No Information not available 05/23/2023 Are you able to walk? YESWOREST [email or web address] Information not available 04/01/2021 Are you able to care for yourself? Yes Information not available 05/23/2023 Do you have difficulty dressing or bathing? No Information not available 05/23/2023 What is your exercise level? Occasional Information not available 07/22/2020 Mental Status None recorded. Family History Relationship Description Onset Age of this Age Resolved Age Notes LastModified by Organization Details LastModified Time Mother Diabetes mellitus [email or web address] Not available 02/12 14:59:00 Mother Hypertensive disorder [email or web address] Not available 02/12 14:59:32 Mother Disorder of thyroid gland [email or web address] Not available 02/12 14:59:50 Mother Kidney disease [email or web address] Not available 04/2023 10:46:28 Maternal Uncle Diabetes mellitus [email or web address] Not available 02/12 14:59:00 Maternal Uncle Hypertensive disorder [email or web address] Not available 02/12 14:59:32 Maternal Aunt Diabetes mellitus [email or web address] Not available 02/12 14:59:00 Maternal Aunt Malignant tumor of pancreas [email or web address] Not available 04/2023 10:46:28 Maternal Grandmother Hypertensive disorder [email or web address] Not available 02/12 14:59:32 Medical History Condition Response History of STI Y History of abnormal pap Y Cancer Y Anemia Y Hypertension Y Kidney Disease Y Gynecological History Statement/Question Response Date of Last Mammogram Date of LMP 03/05/2021 N Was last menstrual period normal N STIs/STDs Y Date of Last Colonoscopy BCPs Desired Control Method BCPs Abnormal Pap Y On BCP's at Conception? Y HPV Vaccine N Duration of Flow (days) 14 Current Control Method BCPs Age at First Child 27 Sexually Active? N Date of DEXA bone scan Age of first menstrual cycle 15 Date of Last Pap Smear Sexual Problems? N LMP Unknown N Obstetrics History GPAL:G 2 P 1 0 1 1 Type Value Full Term 1 Induced 1 Living 1 Total 2 Past Encounters Encounter ID Performer Location Encounter Start Date Encounter Closed Date Diagnosis/Indication Diagnosis SNOMED-CT Code Diagnosis ICD10 Code Diagnosis Note [id number] [facility] [address],[place] [address] 07/22/2020 10:57:35 07/22/2020 18:01:11 Menorrhagia 950122204 N92.0 Hypertensive disorder 38 885586 I10 [id number] [facility] [address],[place] [address] 04/01/2021 09:35:00 04/01/2021 10:09:00 Gynecologic examination 01648081 Z01.419 [id number] Taty Rojo, [facility] [address],[place] [address] 04/28/2021 09:16:54 04/28/2021 10:04:45 Specimen with abnormal presence of endometrial cells 170113331 R87.619 [id number] Jade Cobb [facility] [address],[place] [address] 05/10/2022 10:11:36 05/10/2022 11:02:59 Gynecologic examination 19359560 Z01.419 Suggested Calcium with Vitamin D 1200-1500m g daily. Patient advised to get an annual flu shot in the fall and she could obtain at [facility] or [facility] clinic. Also to obtain TDap vaccinatio n if you have not had one in the last 10 years. Recommend yearly mammograms . Encouraged monthly self breast exams. Encourage safe sexual practices, to use condoms and limit partners if not already in a monogamous relationsh ip. Engage in daily exercise of low impact aerobic exercise 45-60 minutes 4-5 times weekly. Avoid tobacco and illicit drugs as well as using moderation with alcohol intake less than 1-2 8 oz beverages daily. This lifestyle behavior pattern will lead to less health conditions and longer life span. If BMI greater than 25 weight watchers or dietary consult advised. All questions have been answered. Patient appears to understand informatio n, but if you have any questions please call or respond to this email. Pap/hpv sent STD Screen declined Genetic Screen discussed Colon Screen UTD PCP Dexa Screen na Routine Labs UTD PCPMammo ordered Contracept ion care management [id number] Z30.9 CUrrently on SLYNDDoing extremely wellGet's this Rx from the company directly. [id number] Kiara Aurea SANTOSH [place] [address] [address] 05/23/2023 10:27:00 05/23/2023 11:06:41 Gynecologic examination [id number] Z01.419 Suggested Calcium with Vitamin D 1200-1500m g daily. Patient advised to get an annual flu shot in the fall and she could obtain at [facility] or [facility] care clinic. Also to obtain TDap vaccinatio n if you have not had one in the last 10 years. Recommend yearly mammograms . Encouraged monthly self breast exams. Encourage safe sexual practices, to use condoms and limit partners if not already in a monogamous relationsh ip. Engage in daily exercise of low impact aerobic exercise 45-60 minutes 4-5 times weekly. Avoid tobacco and illicit drugs as well as using moderation with alcohol intake less than 1-2 8 oz beverages daily. This lifestyle behavior pattern will lead to less health conditions and longer life span. If BMI greater than 25 weight watchers or dietary consult advised. All questions have been answered. Patient appears to understand informatio n, but if you have any questions please call or respond to this email. WWEBC - slyndvery happy with slyndpap updatedSTI testing declinedma mmogram order givenUTD with PCPRTC in 1 year or sooner if needed [facility] ion care management [id number] Z30.9 Screening for malignant neoplasm of breast [id number] Z12.39 [id number] Kiara Aurea SANTOSH [place] [address] [address] 05/28/2024 09:38:16 05/28/2024 14:12:17 Gynecologic examination [id number] Z01.419 WWEpap updateddec lined STI screenmamm ogram ordered and encouraged colon cancer screening discussed, f/u with PCPUTD with PCP Patient advised to get an annual flu shot in the fall and she could obtain at local pharmacy. Also to obtain TDap vaccinatio n if you have not had one in the last 10 years. Recommend yearly mammograms . Encouraged monthly self breast exams. Encourage safe sexual practices, to use condoms and limit partners if not already in a monogamous relationsh ip. Engage in regular exercise. Avoid tobacco and illicit drugs.This lifestyle behavior pattern will lead to less health conditions and longer life span. If BMI greater than 25 dietary consult advised. All questions have been answered. Screening for malignant neoplasm of breast [id number] Z12.39 [facility] ion care management [id number] Z30.9 upon chart review found pt has been diagnosed with kidney diseasecur rently on slynd, recommend alternativ e method (mini-pill , IUD) as slynd is generally avoided in pts with renal impairment Health Concerns Section Related Observation LastModified by Organization Detai ls LastModified Time None Recorded Concern Status LastModified by Organization Details LastModified Time None Recorded Advance Directives Directive Y: Payers Encounter Date Sequence Insurance Name Policy Number Policy Joy Covered Member ID Joy Member ID Guarantor Name 04/01/2021 *SELF PAY* Ghazala Jo 04/01/2021 SLIDING FEE SCHEDULE - DISCOUNT Megan Jo 04/28/2021 *SELF PAY* Ghazala Jo 04/28/2021 SLIDING FEE SCHEDULE - DISCOUNT Megan Jo 05/23/2023 1 [place] [id number] Megan D Sandro [id number] Megan D Sandro 05/28/2024 1 [place] [id number] Megan D Sandro [id number] Megan Tavares Jo Notes Date Note Type Note Provider Name and Address Organization Details Recorded Time 04/01/2021 text/html Annual GYNReport ed bypatient.Breast:No breast pain; No breast lump; No nipple discharge Sexual complaints:No sexual complaints; No pain during intercourse; Normal libido Menopausal Symptoms:No menopausal symptoms; Normal vaginal lubrication Psychological symptoms:No depression; No anxiety; No PMDDNotes:spotting with nahid, bp meds just took before arrived, seeing pcp for bp, no mammagram hx, care assistant Taty Rojo CNM [address], [place], [address], [facility] 04/01/2021 10:08:14 04/28/2021 text/html endometrial cell s on pap here for endometrial biopsy reviwed procedure, bp elevated, just took bp meds, will monitor at home and with pcp Taty Rojo CNM [address], [place], [address], [facility] 04/28/2021 10:03:56 05/10/2022 text/html Annual GYNReport ed bypatient.History:no gynecologic complaints Menstrual cycle:Normal menses Urinary symptoms:No hematuria; No incontinence Vulva:No genital lesion Vagina:Normal vaginal discharge Breast:No breast pain; No breast lump; No nipple discharge Current Contraception:Satisf ied with current contraception; Oral contraceptives Sexual complaints:No sexual complaints; No pain during intercourse; Normal libido Menopausal Symptoms:No menopausal symptoms; Normal vaginal lubrication Psychological symptoms:No depression; No anxiety; No PMDD Preventive measures:Encourage self breast examination; Encourage regular exercise; Encourage no tobacco use; Encourage regular mammograms starting age 40; Followed with yearly pap smears; Needs to schedule mammogram; Up to date on colonoscopy screening LISETTE Ramirez- [address], [place], [address], [facility] 05/10/2022 10:57:00 05/23/2023 text/html Annual GYNReport ed bypatient.Menstrual cycle:Normal menses Urinary symptoms:No hematuria; No incontinence Vulva:No genital lesion Vagina:Normal vaginal discharge Breast:No breast pain; No breast lump; No nipple discharge Current Contraception:Satisf ied with current contraception; Oral contraceptives Sexual complaints:No sexual complaints; No pain during intercourse; Normal libido Menopausal Symptoms:No menopausal symptoms; Normal vaginal lubrication Psychological symptoms:No depression; No anxiety; No PMDD Preventive measures:Encourage self breast examination; Encourage regular exercise; Encourage no tobacco use; Encourage regular mammograms starting age 40 LISETTE Ortiz [address], [place], [address], [facility] 05/23/2023 11:01:50 05/28/2024 text/html Annual GYNReport ed bypatient.Menstrual cycle:Normal menses Urinary symptoms:No hematuria; No incontinence Vulva:No genital lesion Vagina:Normal vaginal discharge Breast:No breast pain; No breast lump; No nipple discharge Current Contraception:Satisf ied with current contraception; Oral contraceptives; slynd Sexual complaints:No sexual complaints; No pain during intercourse; Normal libido Menopausal Symptoms:No menopausal symptoms; Normal vaginal lubrication Psychological symptoms:No depression; No anxiety; No PMDD Preventive measures:Encourage self breast examination; Encourage regular exercise; Encourage no tobacco use; Encourage regular mammograms starting age 40Notes:49yo WWElast pap 05/2023 : nilm, HPV (-)BC - slynd, doing wellmammogram - has never had one pt states being evaluated for possible kidney issues Kiara Villar, WHSANTOSH [address], [place], [address], [facility] 05/28/2024 14:38:00 OBGyn Episode Ob Episode Information Episode Created Date Number of Fetuses Patient Bloodtype Patient rh Status Prepregnancy Weight lbs Domestic Partner Domestic Partner Phone Father Name Consumer Loan Processor Status 07/22/20 20 1 CLOSED Fetus Data First Name Last Name Admitted to NICU Weight (g) Sex Living Outcome Pediatric Complications Fetus ID Race Codes Race Delivery Type , Induced 5089 Michelet Calculation Initial Michelet Date Initial Exam Date Initial Exam Provider Initial Ultrasound Date Last Menstrual Period Date Ultra Sound Weeks Gestation 0 Eighteen To Twenty Week Michelet Update Ultra Sound Date Fundal Height At Umbil Quickening Date Ultra Sound Latest Weeks Gestation Final Michelet Confirmed By Final Michelet Confirmed Date Final Michelet Date Ultra Sound Latest Days Gestation 0 0 Menstrual History Last Menstrual Date Menses Monthly On Bcp Conception Prior Menses Frequency Hcg Plus Date Menarche Onset Age Delivery Information Delivery Date Delivery Type Labor Anesthesia Weeks Gestation Incision Type Labor Labor Length Hrs Delivered By Post Complications Tubal Sterilization Discharge Date Comments 0 1999 induced Discharge Information Feeding Method Contraceptive Method Maternal HG B and HCT Levels Ob Episode Information Episode Created Date Number of Fetuses Patient Bloodtype Patient rh Status Prepregnancy Weight lbs Domestic Partner Domestic Partner Phone Father Name Consumer Loan Processor Status 07/22/20 20 1 CLOSED Fetus Data First Name Last Name Admitted to NICU Weight (g) Sex Living Outcome Pediatric Complications Fetus ID Race Codes Race Delivery Type 3798.83 3 M Full Term 5090 Vaginal Delivery Michelet Calculation Initial Michelet Date Initial Exam Date Initial Exam Provider Initial Ultrasound Date Last Menstrual Period Date Ultra Sound Weeks Gestation 0 Eighteen To Twenty Week Michelet Update Ultra Sound Date Fundal Height At Umbil Quickening Date Ultra Sound Latest Weeks Gestation Final Michelet Confirmed By Final Michelet Confirmed Date Final Michelet Date Ultra Sound Latest Days Gestation 0 0 Menstrual History Last Menstrual Date Menses Monthly On Bcp Conception Prior Menses Frequency Hcg Plus Date Menarche Onset Age Delivery Information Delivery Date Delivery Type Labor Anesthesia Weeks Gestation Incision Type Labor Labor Length Hrs Delivered By Post Complications Tubal Sterilization Discharge Date Comments 2 38 HTN Discharge Information Feeding Method Contraceptive Method Maternal HG B and HCT Levels
--- OUTSIDE RECORDS SUMMARY | 2024-12-31 09:01 | XMS_ITS | Clinical Summary ---
Author Organization [facility] Michaelhanjosé Dumas Address [address] [place] [address] Care Team Providers Care Sales Representative Facility Services Name Role Phone Anupam Segundo MD Primary Care Provider + [phone] Allergies No known active allergies Medications cloNIDine HCL (CATAPRES) 0.3 mg tablet Take 0.3 mg by mouth 3 times daily. Active losartan (COZAAR) 50 mg tablet Take 50 mg by mouth daily. Active hydroCHLOROthiaz stephany (HYDRODIURIL) 12.5 mg tablet Take 12.5 mg by mouth daily. Active Active Problems No known active problems Encounters Date Type Department Care Team Description 12/22/2024 External Device Data STL ABSTRACTION Provider, Abstract 12/21/2024 External Device Data STL ABSTRACTION Provider, Abstract 12/18/2024 External Device Data STL ABSTRACTION Provider, Abstract 12/07/2024 Abstract [facility] Oncology and Hematology - [place] [address] [address] Allen Britt MD 12/04/2024 External Device Data STL ABSTRACTION Provider, Abstract 11/07/2024 External Device Data STL ABSTRACTION Provider, Abstract 11/06/2024 External Device Data STL ABSTRACTION Provider, Abstract 10/30/2024 External Device Data STL ABSTRACTION Provider, Abstract from Last 3 Months Family History Medical History Relation Name Comments No Known Problems Child No Known Problems Father Diabetes Mother Heart Disease Mother Relation Name Status Comments Child Alive Father Mother Social History Tobacco Use Types Packs/Day Years Used Date Smoking Tobacco: Former Cigarettes 0.3 10 0 10/17/2005 - 10/17/2015 Smokeless Tobacco: Never Tobacco Cessation:Counseling Given: Not Answered Alcohol Use Standard Drinks/Week Comments Never 0 (1 standard drink = 0.6 oz pur e alcohol) Comments Unknown Sex and Gender Information Value Date Recorded Sex Assigned at Not on file Legal Sex Female 8:52 AM CDT Gender Identity Not on file Sexual Orientation Not on file Last Filed Vital Signs Vital Sign Reading Time Taken Comments Blood Pressure 174/115 07/16/2024 1:18 PM CDT Pulse 59 07/16/2024 1:08 PM CDT Temperature 36.6 C (97.8 F) 07/16/2024 1:08 PM CDT Respiratory Rate 16 07/16/2024 1:08 PM CDT Oxygen Saturation 94% 07/16/2024 1:08 PM CDT Inhaled Oxygen Concentration - - Weight 71.7 kg (158 lb) 07/16/2024 1:08 PM CDT Height 170.2 cm (5' 7 ) 08/01/2023 3:38 PM CDT Body Mass Index 24.75 08/01/2023 3:38 PM CDT Plan of Treatment Upcoming Encounters Date Type Department Care Team (Late st Contact Info) Description 01/14/2025 11:45 AM CDT Office Visit [facility] Oncology and Hematology [facility] [address] [facility] [address] [place] [address] Allen Britt MD [address] [facility] [address] [place] [address] Health Maintenance Due Date Last Done Comments DTAP/TDAP/TD VACCINES (1 - Tdap) 1994 HEPATITIS B VACCINES (1 of 3 - 19+ 3-dose series) 1994 BREAST CANCER SCREENING 2015 COLORECTAL SCREENING 02/06/2020 Colorectal Cancer Screening 02/06/2020 FIT-DNA Q 3 years 02/06/2020 FIT/FOBT Q 1 year 02/06/2020 Flex Sig/CT Colonography Q 5 years 02/06/2020 INFLUENZA VACCINE (#1) 2024 Preventative Visit- Commercial 10/17/2024 0 05/28/2024, 05/23/2023, 05/10/2022, Additional history exists CERVICAL CANCER SCREENING 05/28/2027 05/28/2024, 04/2023 Insurance [facility] [employer] CHO[employer] Care Teams Sales Representative Facility Services Relationship Specialty Start Date End Date Anupam Segundo MD [address] [facility] [address] [place] [address] PCP - General Internal Medicine 07/21/23
--- OUTSIDE RECORDS SUMMARY | 2024-12-31 09:01 | XMS_ITS | Encounter Summary ---
Author Organization [facility] Address [address] [place] [address] Care Team Providers Care State Game Warden Name Role Phone Unavailable Primary Care Provider Unavailabl e Encounter Details Date Type Department Care Team (Late st Contact Info) Description 09/13/2023 Lab Requisition [facility] - Pathology Lab [address] [place] [address] Joe Salgado MD [address] [facility] [address] [place] [address] Illness, unspecified Social History Tobacco Use Types Packs/Day Years Used Date Smoking Tobacco: Never Assessed Sex and Gender Information Value Date Recorded Sex Assigned at Not on file Gender Identity Not on file Sexual Orientation Not on file documented as of this encounter Plan of Treatment Not on file documented as of this encounter Procedures Procedure Name Priority Date/Time Associated Diagnosis Comments BONE MARROW BIOPSY (STL) Routine 09/12/2023 9:30 AM BELT SPLICER Illness, unspecified documented in this encounter Results * BONE MARROW BIOPSY (STL) (09/12/2023 9:30 AM BELT SPLICER) Case Report Bone Marrow Patholog y Report Case: [id number] Authorizing Provider: Srinivasan Salgado MD Collected: 09/12/2023 09:30 AM Ordering Location: [facility] Care Pathology Lab Received: 09/13/2023 12:19 PM Pathologist: Corina Parks MD Specimens: A) - Bone Marrow Clot B) - Bone Marrow Core 09/14/2023 3:47 PM BELT SPLICER U PATHOLOGY LAB Final Diagnosis Bone marrow, aspirate, clot section, and core biopsy: - Mildly hypocellular marrow for age with maturing trilineage hematopoiesis and mild involvement by plasma cell neoplasm (~15% of marrow cellularity). - See description. Peripheral blood smear: - Essentially normal smear. - See description. 09/14/2023 3:47 PM [facility] PATHOLOGY LAB Comment Immunohistochemistry performed for CD138 to assess staining cells in an architectural context show ~15% of marrow cellularity to represent plasma cells. Overall findings are those of mild involvement by plasma cell neoplasm. 09/14/2023 3:47 PM [facility] PATHOLOGY LAB Peripheral Smear Description RBC: normocytic, normochromic, mild rouleaux formation WBC: normal in number and morphology Platelets: normal in number and morphology 09/14/2023 3:47 PM [facility] PATHOLOGY LAB Bone Marrow Aspirate Differential count (200 cells): 0% blasts, 65% maturing myeloid precursors, 13% erythroid progenitors, 1% monocytes, 2% eosinophils, 9% lymphocytes, 10% plasma cells. Specimen quality: adequate. Spicules: numerous. Trilineage Hematopoiesis: present. Myeloid:Erythroid ratio: normal. Myeloid Maturation: normal. Erythroid Maturation: normal. Megakaryocyte morphology: normal size. Storage iron (by special stain): mildly increased. Sideroblastic iron (by special stain): no ring sideroblasts. 09/14/2023 3:47 PM [facility] PATHOLOGY LAB Bone Marrow Core Biopsy and Clot Section Description Specimen quality: adequate with 1.6 cm of evaluable marrow. Cellularity: 40-50% Trilineage Hematopoiesis: present. Myeloid to Erythroid ratio: normal. Myeloid maturation and localization: normal. Erythroid maturation and localization: normal. Megakaryocyte number: normal. Megakaryocyte distribution: normal. Lymphoid aggregates: absent. Bone trabeculae: thin. Blood vessels: normal. Plasma cells: increased interstitially Clot section marrow particles: few. Clot section morphology: similar to core biopsy. 09/14/2023 3:47 PM [facility] PATHOLOGY LAB Flow Cytometry Summary Bone marrow, flow cytometry ([id number]): - Minute lambda predominant CD138+/CD38+ plasma cell population detected (0.5% of overall events) 09/14/2023 3:47 PM [facility] PATHOLOGY LAB Clinical History Multiple myeloma. 09/14/2023 3:47 PM [facility] PATHOLOGY LAB Materials Received Received are 20 slide(s) and 3 blocks labeled [id number] along with a copy of the outside pathology report. The materials originate from [facility], [address] [place] [address] [address], [place] [address]. All original materials are returned to the referring institution, along with a copy of our final report. 09/14/2023 3:47 PM [facility] Pathologist Location at [facility] 09/14/2023 3:47 PM [facility] PATHOLOGY LAB Disclaimer The performance characteristics of all immunohistochemical and indirect immunofluorescence stains (if any) cited in this report were determined by the Histopathology Laboratory of [facility]. Some of these tests were developed by our own laboratory and have not been cleared or approved by the US Food and Drug Administration. The FDA does not require this test to go through premarket FDA review. These tests are used for clinical purposes. They should not be regarded as investigational or for research. This laboratory is certified under the Clinical Laboratory Improvement Amendments (CLIA) as qualified to perform high complexity clinical laboratory testing. This case has been personally reviewed and interpreted by the attending (teaching) pathologist. 09/14/2023 3:47 PM [facility] PATHOLOGY LAB Embedded Images 09/14/2023 3:47 PM [facility] PATHOLOGY LAB Pathology/Cytology BONE MARROW SPECIMEN / Unknown 09/12/2023 9:30 AM BELT SPLICER 09/13/2023 12:19 PM BELT SPLICER Miscellaneous samples (specimen) BONE MARROW SPECIMEN / Unknown 09/12/2023 9:30 AM BELT SPLICER 09/13/2023 12:19 PM BELT SPLICER Joe Salgado MD LAB - PATHO LOGY/CYTOLOGY ORDERABLES [facility] PATHOLOGY LAB [address] [facility] [place] [address], [facility] [phone] documented in this encounter Visit Diagnoses Diagnosis Illness, unspecified documented in this encounter
--- OUTSIDE RECORDS SUMMARY | 2024-12-31 09:01 | XMS_ITS | Referral Summary ---
Author Organization [facility] Address [address] [facility] [place] [address] Care Team Providers Care Cistern Room Operator Name Role Phone Unavailable Primary Care Provider Unavailabl e Source Comments [facility],non-owned Affiliates and Associated Physician Practices is amultiple site organization consisting of ambulatory clinics and hospital sitesin [place], [place], [place] and [place]. This disclosure is being madepursuant to the Care Everywhere program and may not contain all information available regarding this patient. Last updated 18.[facility] [place] [employer] Social History Tobacco Use Types Packs/Day Years Used Date Smoking Tobacco: Never Assessed Sex and Gender Information Value Date Recorded Sex Assigned at Not on file Gender Identity Not on file Sexual Orientation Not on file Plan of Treatment Not on file
--- OUTSIDE RECORDS SUMMARY | 2024-12-31 09:01 | XMS_ITS | Encounter Summary ---
Author Organization [facility] Address [address] [place] [address] Care Team Providers Care Top Cleaner Name Role Phone Unavailable Primary Care Provider Unavailabl e Encounter Details Date Type Department Care Team (Late st Contact Info) Description 09/12/2023 Lab Requisition [facility] - Pathology Lab [address] [place] [address] Joe Salgado MD [address] [place] [id number] Multiple myeloma not having achieved remission (HCC) Social History Tobacco Use Types Packs/Day Years Used Date Smoking Tobacco: Never Assessed Sex and Gender Information Value Date Recorded Sex Assigned at Not on file Gender Identity Not on file Sexual Orientation Not on file documented as of this encounter Plan of Treatment Not on file documented as of this encounter Procedures Procedure Name Priority Date/Time Associated Diagnosis Comments FLOW CYTOMETRY BONE MARROW Routine 09/12/2023 9:30 AM LUNCHROOM AIDE Multiple myeloma not having achieved remission (CMS/HCC) documented in this encounter Results * FLOW CYTOMETRY BONE MARROW (09/12/2023 9:30 AM LUNCHROOM AIDE) Case Report Flow Cytometry Case: [id number] Authorizing Provider: Srinivasan Salgado MD Collected: 09/12/2023 09:30 AM Ordering Location: [facility] Care Pathology Lab Received: 09/12/2023 04:00 PM Pathologist: Corina Parks MD Specimen: Bone Marrow 09/13/2023 10:05 AM LUNCHROOM AIDE U PATHOLOGY LAB Final Diagnosis Bone marrow, flow cytometry: - Minute lambda predominant CD138+/CD38+ plasma cell population detected (0.5% of overall events) 09/13/2023 10:05 AM [facility] PATHOLOGY LAB Flow Cytometry Interpretation Viability: 92% B-cells: polytypic, kappa:lambda ratio 1.8:1 T-cells: not increased Blasts: not increased, 0.63% of overall events Plasma cells: monoclonal, lambda-restricted , subset is CD56 positive, aberrant loss of CD19 in a subset. A bone marrow aspirate smear prepared from the flow cytometry specimen has been reviewed for quality assurance test program manager purposes. 09/13/2023 10:05 AM [facility] PATHOLOGY LAB Flow Cytometry Results Differential Result Comment Flow Cell Count /uL 36,900 Total Viability % 92.0 Lymphocytes % 25 Dim CD45 Region % 3 Monocytes % 8 Granulocytes % 65 09/13/2023 10:05 AM [facility] PATHOLOGY LAB Reason for test Multiple myeloma not having achieved remission (CMS/HCC) 203.00 09/13/2023 10:05 AM [facility] PATHOLOGY LAB Client Specimen ID # [id number] 09/13/2023 10:05 AM [facility] PATHOLOGY LAB Number of markers 14 were performed. A-2 Flow CD10 A-3 Flow CD13 A-5 Flow CD20 A-13 Flow CD117 A-14 FLOW CD138 A-1 Flow CD5 A-4 Flow CD19 A-6 Flow CD33 A-7 Flow CD34 A-8 Flow CD45 A-11 Flow CD38 A-12 Flow CD56 A-9 [place]+CD19+ A-10 Lambda+CD19+ 09/13/2023 10:05 AM [facility] PATHOLOGY LAB Pathologist Location at [facility] 09/13/2023 10:05 AM [facility] PATHOLOGY LAB Disclaimer Test performed at [facility], [address] [place] [address], [address]. *The established laboratory minimum viability is 70%. Values below the minimum may result in the failure to find an abnormal population of cells. This test was developed and its performance characteristics determined by the Flow Cytometry Laboratory. It has not been cleared by the [place] Food and Drug Administration (FDA). The FDA has determined that such clearance or approval is not necessary. This test is used for clinical purposes. It should not be regarded as investigational or for research. This laboratory is regulated under the Clinical Laboratory Improvement Amendments of 1998 (CLIA) as a qualified to perform high complexity clinical testing. 09/13/2023 10:05 AM [facility] PATHOLOGY LAB Embedded Images 10:05 AM [facility] PATHOLOGY LAB Pathology/Cytolo gy BONE MARROW SPECIMEN / Unknown 09/12/2023 9:30 AM LUNCHROOM AIDE 09/12/2023 4:00 PM LUNCHROOM AIDE Joe Salgado MD LAB - PATHO LOGY/CYTOLOGY ORDERABLES Performing Organization Address City/State/[facility] Co de Phone Number [facility] PATHOLOGY LAB [address] [phone] documented in this encounter Visit Diagnoses Diagnosis Multiple myeloma not having achieved remission (HCC) Multiple myeloma, without mention of having achieved remission documented in this encounter
--- OUTSIDE RECORDS SUMMARY | 2024-12-31 09:01 | XMS_ITS | Patient Health Summary ---
Author Organization [facility] Address [address] [facility] [place] [address] Care Team Providers Care Machine Welt Butter Name Role Phone Unavailable Primary Care Provider Unavailabl e Note from [facility],non-owned Affiliates and Associated Physician Practices is amultiple site organization consisting of ambulatory clinics and hospital sitesin [place], [place], [place] and [place]. This disclosure is being madepursuant to the Care Everywhere program and may not contain all information available regarding this patient. Last updated 18.[facility] Social History Tobacco Use Types Packs/Day Years Used Date Smoking Tobacco: Never Assessed Sex and Gender Information Value Date Recorded Sex Assigned at Not on file Gender Identity Not on file Sexual Orientation Not on file Procedures * BONE MARROW BIOPSY (STL)(Performed 09/12/2023) Performed for Illness, unspecified * FLOW CYTOMETRY BONE MARROW(Performed 09/12/2023) Performed for Multiple myeloma not having achieved remission (CMS/[facility]) Results * FLOW CYTOMETRY BONE MARROW (09/12/2023 9:30 AM NEONATAL SURGEON) Case Report Flow Cytometry Case: [id number] Authorizing Provider: Srinivasan Salgado MD Collected: 09/12/2023 09:30 AM Ordering Location: [facility] Pathology Lab Received: 09/12/2023 04:00 PM Pathologist: Corina Parks MD Specimen: Bone Marrow 09/13/2023 10:05 AM NEONATAL SURGEON [facility] PATHOLOGY LAB Final Diagnosis Bone marrow, flow cytometry: - Minute lambda predominant CD138+/CD38+ plasma cell population detected (0.5% of overall events) 09/13/2023 10:05 AM [facility] PATHOLOGY LAB Flow Cytometry Interpretation Viability: 92% B-cells: polytypic, kappa:lambda ratio 1.8:1 T-cells: not increased Blasts: not increased, 0.63% of overall events Plasma cells: monoclonal, lambda-restricted , subset is CD56 positive, aberrant loss of CD19 in a subset. A bone marrow aspirate smear prepared from the flow cytometry specimen has been reviewed for supervisor quality control purposes. 09/13/2023 10:05 AM [facility] PATHOLOGY LAB Flow Cytometry Results Differential Result Comment Flow Cell Count /uL 36,900 Total Viability % 92.0 Lymphocytes % 25 Dim CD45 Region % 3 Monocytes % 8 Granulocytes % 65 09/13/2023 10:05 AM [facility] PATHOLOGY LAB Reason for test Multiple myeloma not having achieved remission (CMS/HCC) 203.00 09/13/2023 10:05 AM [facility] PATHOLOGY LAB Client Specimen ID # [id number] 09/13/2023 10:05 AM [facility] PATHOLOGY LAB Number of markers 14 were performed. A-2 Flow CD10 A-3 Flow CD13 A-5 Flow CD20 A-13 Flow CD117 A-14 FLOW CD138 A-1 Flow CD5 A-4 Flow CD19 A-6 Flow CD33 A-7 Flow CD34 A-8 Flow CD45 A-11 Flow CD38 A-12 Flow CD56 A-9 [place]+CD19+ A-10 Lambda+CD19+ 09/13/2023 10:05 AM [facility] PATHOLOGY LAB Pathologist Location at [facility] 09/13/2023 10:05 AM [facility] PATHOLOGY LAB Disclaimer Test performed at [facility], [address] [place] [address], [id number]. *The established laboratory minimum viability is 70%. [...] high complexity clinical testing. 09/13/2023 10:05 AM [facility] PATHOLOGY LAB Embedded Images 10:05 AM [facility] PATHOLOGY LAB Pathology/Cytolo gy BONE MARROW SPECIMEN / Unknown 09/12/2023 9:30 AM NEONATAL SURGEON 09/12/2023 4:00 PM NEONATAL SURGEON Joe Salgado MD LAB - PATHO LOGY/CYTOLOGY ORDERABLES [facility] PATHOLOGY LAB [address] [phone] * BONE MARROW BIOPSY (STL) (09/12/2023 9:30 AM NEONATAL SURGEON) Case Report Bone Marrow Patholog y Report Case: [id number] Authorizing Provider: Srinivasan Salgado MD Collected: 09/12/2023 09:30 AM Ordering Location: [facility] Pathology Lab Received: 09/13/2023 12:19 PM Pathologist: Corina Parks MD Specimens: A) - Bone Marrow Clot B) - Bone Marrow Core 09/14/2023 3:47 PM [facility] PATHOLOG[facility] LAB Final Diagnosis Bone marrow, aspirate, clot section, and core biopsy: - Mildly hypocellular marrow for age with maturing trilineage hematopoiesis and mild involvement by plasma cell neoplasm (~15% of marrow cellularity). - See description. Peripheral blood smear: - Essentially normal smear. - See description. 09/14/2023 3:47 PM [facility] PATHOLOG[facility] LAB Comment Immunohistochemistry performed for CD138 to assess staining cells in an architectural context show ~15% of marrow cellularity to represent plasma cells. Overall findings are those of mild involvement by plasma cell neoplasm. 09/14/2023 3:47 PM [facility] PATHOLOG[facility] LAB Peripheral Smear Description RBC: normocytic, normochromic, mild rouleaux formation WBC: normal in number and morphology Platelets: normal in number and morphology 09/14/2023 3:47 PM [facility] PATH[facility] Bone Marrow Aspirate Differential count [...] stain): no ring sideroblasts. 09/14/2023 3:47 PM [facility] PATHOLOG[facility] Bone Marrow Core Biopsy and [...] similar to core biopsy. 09/14/2023 3:47 PM [facility] PATH[facility] Flow Cytometry Summary Bone marrow, flow cytometry ([id number]): - Minute lambda predominant CD138+/CD38+ plasma cell population detected (0.5% of overall events) 09/14/2023 3:47 PM [facility] PATHOLOG[facility] LAB Clinical History Multiple myeloma. 09/14/2023 3:47 PM [facility] PATHOLOGY LAB Materials Received Received are 20 slide(s) and 3 blocks labeled [id number] along with a copy of the outside pathology report. The materials originate from [address] [place] [address]. All original materials are returned to the referring institution, along with a copy of our final report. 09/14/2023 3:47 PM [facility] PATHOLOGY LAB Pathologist Location at [facility] 09/14/2023 3:47 PM [facility] PATHOLOG[facility] LAB Disclaimer The performance characteristics of all immunohistochemical and indirect immunofluorescence stains (if any) cited in this report were determined by the Histopathology Laboratory of [facility]. Some of these tests were developed by [...] the attending (teaching) pathologist. 09/14/2023 3:47 PM NEONATAL SURGEON [facility] PATHOLOGY LAB Embedded Images 09/14/2023 3:47 PM NEONATAL SURGEON [facility] PATHOLOGY LAB Pathology/Cytology BONE MARROW SPECIMEN / Unknown 09/12/2023 9:30 AM NEONATAL SURGEON 09/13/2023 12:19 PM NEONATAL SURGEON Miscellaneous samples (specimen) BONE MARROW SPECIMEN / Unknown 09/12/2023 9:30 AM NEONATAL SURGEON 09/13/2023 12:19 PM NEONATAL SURGEON Joe Salgado MD LAB - PATHO LOGY/CYTOLOGY ORDERABLES [facility] PATHOLOG[facility] LAB [address] [place], [place] [address] [place] [address]
--- OUTSIDE RECORDS SUMMARY | 2024-12-31 09:01 | XMS_ITS | Clinical Summary ---
Author Organization [facility] Address [address] [place] [address] Care Team Providers Care It Network Administrator Name Role Phone Unavailable Primary Care Provider Unavailabl e Source Comments [facility],non-owned Affiliates and Associated Physician Practices is amultiple site organization consisting of ambulatory clinics and hospital sitesin [place], [place], [place]. This disclosure is being madepursuant to the Care Everywhere program and may not contain all information available regarding this patient. Last updated 18.[facility] Social History Tobacco Use Types Packs/Day Years Used Date Smoking Tobacco: Never Assessed Sex and Gender Information Value Date Recorded Sex Assigned at Not on file Gender Identity Not on file Sexual Orientation Not on file Plan of Treatment Health Maintenance Due Date Last Done Comments COLOGUARD (AGES 45-75) - COL ON CA SCREENING 1975 COLON MONITORING 1975 COLONOSCOPY - COLON CA SCREENING 1975 CT COLONOGRAPHY - COLON CA SCREENING 1975 Colorectal Cancer Screening 1975 FIT - COLON CA SCREENING 1975 FLEX SIG - COLON CA SCREENING 1975 LIPID TESTING 1975 MAMMOGRAM 1975 PAP SMEAR 1975 HIV SCREENING 1990 HEPATITIS C SCREENING 01/31/1993 DTAP/TDAP/TD VACCINES (1 - Tdap) 1994 HEPATITIS B VACCINE (1 of 3 - 19+ 3-dose series) 1994 COVID-19 VACCINE ( - 2023-2 5 season) 2024 INFLUENZA VACCINE (#1) 2024 DEPRESSION SCREENING 10/17/2024 ZOSTER VACCINE (1 of 2) 2025 HIB VACCINE Aged Out No longer eligi ble based on patient's age to complete this topic HPV VACCINE Aged Out No longer eligi ble based on patient's age to complete this topic MENINGOCOCCAL (Group B) VACC INE SHARED DECISION-MAKING Aged Out No longer eligibl e based on patient's age to complete this topic MENINGOCOCCAL GROUPS A/C/Y/W VACCINE Aged Out No longer eligible b ased on patient's age to complete this topic PNEUMOCOCCAL VACCINE Aged Out No long er eligible based on patient's age to complete this topic
[2024-12-31 10:08] LABS: Alanine Aminotransferase 48 U/L (6-35); Albumin Level 4.3 g/dL (3.5-5.1); Alkaline Phosphatase 59 U/L (38-126); Anion Gap 12 mmol/L (4-12); Aspartate Amino Transferase 37 U/L (14-36); Bilirubin,Total 0.5 mg/dL (0.2-1.3); Blood Urea Nitrogen 24 mg/dL (7-17); Calcium 10.2 mg/dL (8.4-10.2); Carbon Dioxide 29 mmol/L (22-30); Chloride 101 mmol/L (98-107); Estimated Glomerular Filt Rate 33; Glucose 124 mg/dL (65-110); Potassium 3.8 mmol/L (3.4-5.0); Sodium 142 mmol/L (137-145)
[2024-12-31 12:16] LABS: Immunoglobulin G 953 mg/dL (700-1600)
[2024-12-31 13:01] LABS: Immunoglobulin A 2009 mg/dL (70-400); Immunoglobulin M < 25 mg/dL (40-230)
[2025-01-01 09:27] LABS: Protein, Total 7.2 g/dL (6.1-8.1)
[2025-01-01 12:28] LABS: Kappa\\Lambda Light Chains 0.06 (0.26-1.65); Lambda Light Chain 316.7 mg/L (5.7-26.3)
[2025-01-02 07:43] LABS: Abnormal Protein Band 1 1.8 g/dL (NONE DETECTED); Albumin 3.4 g/dL (3.8-4.8); Alpha 1 Globulin 0.2 g/dL (0.2-0.3); Alpha 2 Globulin 0.5 g/dL (0.5-0.9); Beta 1 Globulin 1.9 g/dL (0.4-0.6); Gamma Globulin 0.8 g/dL (0.8-1.7)
== END 2024-12-31 08:39 | disposition home or self-care (01) ==
LOC: ANHLAB 08:39
PROVIDERS: Visit Provider Internal Medicine Hematology & Oncology
DX: C90.00 Multiple myeloma not having achieved remission (principal)
CPT/HCPCS: 36415; 80053; 82784; 83883; 84155; 84165; 85025

== ENCOUNTER 2025-01-29 11:46 | Outpatient (CLI) | payer BC, SELFPAY ==
--- NOTE | ~2025-01-29 | PE_ITS ---
EXAMINATION: PET skull to mid thigh DATE: 01/29/2025 14:01 INDICATION: Multiple myeloma with nonspecific remission status TECHNIQUE: Blood glucose level was 105 mg/dL. 10.213 mCi of 18-fluorodeoxyglucose (18-FDG) was admini stered i.v. Low dose computed tomography (CT) images were acquired from the base of the brain to the proximal thighs for attenuation correction and anatomic localization. Positron emission tomography (P ET) images were acquired in the same distribution beginning 59 minutes after injection. Images includ ing fused PET/CT images were reconstructed in axial, coronal, and sagittal planes. Automated exposure control technique was employed. The dose-length product was 840.29mGy-cm. COMPARISON: None FINDINGS: Head/neck: There is symmetric increased activity in the oral cavity, palatine tonsils, parotid glands, submandi bular glands, laryngeal muscles and ocular muscles without CT correlate, likely physiologic. 3.0 cm l eft thyroid nodule with increased FDG uptake with maximal SUV of 5.1 with recent biopsy demonstrating pathology consistent with benign follicular nodule. No pathologically enlarged cervical lymphadeno mandi or suspicious foci of increased FDG uptake in the visualized head or neck. Chest: Trace bilateral pleural effusions and mild dependent atelectasis in both lungs. No or suspicious pulm onary nodules, pneumonia or pulmonary edema. Mild cardiomegaly. Small pericardial effusion. Thoracic aorta is normal in caliber. No pathologically enlarged or FDG avid thoracic lymphadenopathy. Abdomen/pelvis/proximal thighs: Physiologic renal accumulation and excretion of FDG activity in the kidneys, bladder and along portio ns of ureters. Normal degree and heterogenous pattern of increased uptake throughout the liver withou t radiologic correlate or dominant FDG avid lesion. The gallbladder, pancreas, spleen and bilateral a drenal glands are normal. Mild uptake scattered throughout the bowels without radiologic correlate, a lso likely physiologic. Normal appendix. 2.6 cm left adnexal cyst. There is mild increased FDG uptake at the otherwise normal-appearing left ovary with maximal SUV of 6.2. No other abnormal foci of incr eased FDG uptake or pathologically enlarged lymphadenopathy in the abdomen, pelvis or proximal thighs . Musculoskeletal: Unchanged bone island at the in the right innominate bone without FDG activity. No suspicious lytic, blastic or abnormally FDG avid bone lesions. IMPRESSION: 1. No evidence of multiple myeloma. 2. Persistent increased uptake in a 3.1 cm left thyroid nodule with recent benign biopsy. 3. Mild uptake in the left ovary at the periphery of fluid appears be a cyst 2.6 cm simple cyst. Cons ider pelvic ultrasound for further evaluation. Reviewed, dictated and finalized at location A. IMPRESSION: 1. No evidence of multiple myeloma. 2. Persistent increased uptake in a 3.1 cm left thyroid nodule with recent esteban gn biopsy. 3. Mild uptake in the left ovary at the periphery of fluid appears be a cyst 2. 6 cm simple cyst. Consider pelvic ultrasound for further evaluation.
[2025-01-29 12:35] LABS: Glucose Point of Care 105 mg/dl (65-105)
--- OUTSIDE RECORDS SUMMARY | 2025-01-29 12:58 | XMS_ITS | Encounter Summary ---
Author Organization [facility] Address [address] [place] [address] Care Team Providers Care Inside Barrel Polisher Name Role Phone Unavailable Primary Care Provider Unavailabl e Encounter Details Date Type Department Care Team (Late st Contact Info) Description 09/13/2023 Lab Requisition [facility] - Pathology Lab [address] [place] [address] Joe Salgado MD [address] [address] Illness, unspecified Social History Tobacco Use Types Packs/Day Years Used Date Smoking Tobacco: Never Assessed Comments Unknown Sex and Gender Information Value Date Recorded Sex Assigned at Not on file Legal Sex Female 3:50 PM COLD ROLL CATCHER Gender Identity Not on file Sexual Orientation Not on file documented as of this encounter Plan of Treatment Not on file documented as of this encounter Procedures Procedure Name Priority Date/Time Associated Diagnosis Comments BONE MARROW BIOPSY (STL) Routine 09/12/2023 9:30 AM COLD ROLL CATCHER Illness, unspecified documented in this encounter Results * BONE MARROW BIOPSY (STL) (09/12/2023 9:30 AM COLD ROLL CATCHER) Case Report Bone Marrow Patholog y Report Case: [id number] Authorizing Provider: Srinivasan Salgado MD Collected: 09/12/2023 09:30 AM Ordering Location: [facility] Care Pathology Lab Received: 09/13/2023 12:19 PM Pathologist: Corina Parks MD Specimens: A) - Bone Marrow Clot B) - Bone Marrow Core 09/14/2023 3:47 PM COLD ROLL CATCHER U PATHOLOGY LAB Final Diagnosis Bone marrow, aspirate, clot section, and core biopsy: - Mildly hypocellular marrow for age with maturing trilineage hematopoiesis and mild involvement by plasma cell neoplasm (~15% of marrow cellularity). - See description. Peripheral blood smear: - Essentially normal smear. - See description. 09/14/2023 3:47 PM [facility] PATHOLOGY LAB Comment Immunohistochemistry performed for CD138 to assess staining cells in an architectural context show ~15% of marrow cellularity to represent plasma cells. Overall findings are those of mild involvement by plasma cell neoplasm. 09/14/2023 3:47 PM [facility] PATHOLOGY LAB Peripheral Smear Description RBC: normocytic, normochromic, mild rouleaux formation WBC: normal in number and morphology Platelets: normal in number and morphology 09/14/2023 3:47 PM [facility] PATHOLOG[facility] LAB Bone Marrow Aspirate Differential [...] stain): no ring sideroblasts. 09/14/2023 3:47 PM [facility] PATHOLOG[facility] LAB Bone Marrow Core Biopsy [...] similar to core biopsy. 09/14/2023 3:47 PM [facility] PATHOLOG[facility] LAB Flow Cytometry Summary Bone marrow, flow cytometry ([id number]): - Minute lambda predominant CD138+/CD38+ plasma cell population detected (0.5% of overall events) 09/14/2023 3:47 PM [facility] PATHOLOG[facility] LAB Clinical History Multiple myeloma. 09/14/2023 3:47 PM [facility] PATHOLOG[facility] LAB Materials Received Received are 20 slide(s) and 3 blocks labeled [id number] along with a copy of the outside pathology report. The materials originate from [facility], [address] [place] [address] [address], [place] [id number]. All original materials are returned to the referring institution, along with a copy of our final report. 09/14/2023 3:47 PM [facility] PATH[facility] LAB Pathologist Location at [facility] 09/14/2023 3:47 PM [facility] PATH[facility] LAB Disclaimer The performance characteristics of all immunohistochemical and indirect immunofluorescence stains (if any) cited in this report were determined by the Histopathology Laboratory of [facility]. Some of these tests were developed [...] the attending (teaching) pathologist. 09/14/2023 3:47 PM [facility] PATHOLOGY LAB Embedded Images 09/14/2023 3:47 PM [facility] PATH[facility] LAB Pathology/Cytology BONE MARROW SPECIMEN / Unknown 09/12/2023 9:30 AM COLD ROLL CATCHER 09/13/2023 12:19 PM COLD ROLL CATCHER Miscellaneous samples (specimen) BONE MARROW SPECIMEN / Unknown 09/12/2023 9:30 AM COLD ROLL CATCHER 09/13/2023 12:19 PM COLD ROLL CATCHER Joe Salgado MD LAB - PATHOLOGY/CYT OLOGY ORDERABLES Final Result [facility] PATHOLOGY LAB [address] [facility] [place] [address], [facility] [phone] documented in this encounter Visit Diagnoses Diagnosis Illness, unspecified documented in this encounter
--- OUTSIDE RECORDS SUMMARY | 2025-01-29 12:58 | XMS_ITS | Encounter Summary ---
Author Organization [facility] Address [address] [place] [address] Care Team Providers Care Assistant Manager Trainee Name Role Phone Unavailable Primary Care Provider Unavailabl e Encounter Details Date Type Department Care Team (Late st Contact Info) Description 09/12/2023 Lab Requisition [facility] - Pathology Lab [address] [place] [id number] Joe Salgado MD [address] [place] [address] Multiple myeloma not having achieved remission Social History Tobacco Use Types Packs/Day Years Used Date Smoking Tobacco: Never Assessed Comments Unknown Sex and Gender Information Value Date Recorded Sex Assigned at Not on file Legal Sex Female 3:50 PM PHOTOGRAMMETRIST Gender Identity Not on file Sexual Orientation Not on file documented as of this encounter Plan of Treatment Not on file documented as of this encounter Procedures Procedure Name Priority Date/Time Associated Diagnosis Comments FLOW CYTOMETRY BONE MARROW Routine 09/12/2023 9:30 AM PHOTOGRAMMETRIST Multiple myeloma not having achieved remission ([facility]) documented in this encounter Results * FLOW CYTOMETRY BONE MARROW (09/12/2023 9:30 AM PHOTOGRAMMETRIST) Case Report Flow Cytometry Case: [id number] Authorizing Provider: Srinivasan Salgado MD Collected: 09/12/2023 09:30 AM Ordering Location: [facility] Care Pathology Lab Received: 09/12/2023 04:00 PM Pathologist: Corina Parks MD Specimen: Bone Marrow 09/13/2023 10:05 AM PHOTOGRAMMETRIST [facility] PATHOLOGY LAB Final Diagnosis Bone marrow, flow cytometry: - Minute lambda predominant CD138+/CD38+ plasma cell population detected (0.5% of overall events) 09/13/2023 10:05 AM [facility] PATHOLOGY LAB Flow Cytometry Interpretation Viability: 92% B-cells: polytypic, kappa:lambda ratio 1.8:1 T-cells: not increased Blasts: not increased, 0.63% of overall events Plasma cells: monoclonal, lambda-restricted , subset is CD56 positive, aberrant loss of CD19 in a subset. A bone marrow aspirate smear prepared from the flow cytometry specimen has been reviewed for quality assurance monitor purposes. 09/13/2023 10:05 AM [facility] PATHOLOGY LAB Flow Cytometry Results Differential Result Comment Flow Cell Count /uL 36,900 Total Viability % 92.0 Lymphocytes % 25 Dim CD45 Region % 3 Monocytes % 8 Granulocytes % 65 09/13/2023 10:05 AM [facility] PATHOLOG[facility] LAB Reason for test Multiple myeloma not having achieved remission (CMS/HCC) 203.00 09/13/2023 10:05 AM [facility] PATHOLOG[facility] LAB Client Specimen ID # [id number] 09/13/2023 10:05 AM [facility] PATHOLOG[facility] LAB Number of markers 14 were performed. A-2 Flow CD10 A-3 Flow CD13 A-5 Flow CD20 A-13 Flow CD117 A-14 FLOW CD138 A-1 Flow CD5 A-4 Flow CD19 A-6 Flow CD33 A-7 Flow CD34 A-8 Flow CD45 A-11 Flow CD38 A-12 Flow CD56 A-9 [place]+CD19+ A-10 Lambda+CD19+ 09/13/2023 10:05 AM [facility] PATHOLOG[facility] LAB Pathologist Location at [facility] 09/13/2023 10:05 AM [facility] PATHOLOG[facility] LAB Disclaimer Test performed at [facility], [address] [place] [address], [address]. *The established laboratory minimum viability is 70%. [...] high complexity clinical testing. 09/13/2023 10:05 AM PHOTOGRAMMETRIST [facility] PATHOLOGY LAB Embedded Images 10:05 AM PHOTOGRAMMETRIST [facility] PATHOLOGY LAB Pathology/Cytolo gy BONE MARROW SPECIMEN / Unknown 09/12/2023 9:30 AM PHOTOGRAMMETRIST 09/12/2023 4:00 PM PHOTOGRAMMETRIST Joe Salgado MD LAB - PATHOLOGY/CYT OLOGY ORDERABLES Final Result [facility] PATHOLOG[facility] LAB [address] [phone] documented in this encounter Visit Diagnoses Diagnosis Multiple myeloma not having achieved remission (HCC) Multiple myeloma, without mention of having achieved remission documented in this encounter
--- OUTSIDE RECORDS SUMMARY | 2025-01-29 12:58 | XMS_ITS | Clinical Summary ---
Author Organization [facility] Address [address] [place] [address] Care Team Providers Care Transplant Registered Nurse Name Role Phone Unavailable Primary Care Provider Unavailabl e Source Comments [facility] [employer],non-owned Affiliates and Associated Physician Practices is amultiple site organization consisting of ambulatory clinics and hospital sitesin [place], [place], [place] and [place]. This disclosure is being madepursuant to the Care Everywhere program and may not contain all information available regarding this patient. Last updated 18.[facility] Social History Tobacco Use Types Packs/Day Years Used Date Smoking Tobacco: Never Assessed Comments Unknown Sex and Gender Information Value Date Recorded Sex Assigned at Not on file Legal Sex Female 3:50 PM BEREAVEMENT COUNSELOR Gender Identity Not on file Sexual Orientation [...] - 19+ 3-dose series) 1994 COVID-19 VACCINE (1 - 2023-2 5 season) 2024 DEPRESSION SCREENING 10/17/2024 ZOSTER VACCINE (1 of 2) 2025 INFLUENZA VACCINE (Season Ended) 2025 HIB VACCINE Aged Out No longer [...]
--- OUTSIDE RECORDS SUMMARY | 2025-01-29 12:59 | XMS_ITS | Clinical Summary ---
Author Organization [facility] Leojosé Dumas Address [address] [place] [address] Care Team Providers Care Rehab Specialist Name Role Phone Anupam Segundo MD Primary Care Provider + [phone] Allergies No known active allergies Medications cloNIDine HCL (CATAPRES) 0.3 mg tablet Take 0.3 mg by mouth 3 times daily. Active losartan (COZAAR) 50 mg tablet Take 50 mg by mouth daily. Active hydroCHLOROthiaz stephany (HYDRODIURIL) 12.5 mg tablet Take 12.5 mg by mouth daily. Active Active Problems No known active problems Encounters Date Type Department Care Team Description 01/14/2025 11:45 AM CDT Office Visit [facility] Oncology and Hematology [facility] [address] [place] [phone] Allen Britt MD Multiple myeloma, remission status unspecified (CMS/HCC) (Primary Dx) 01/03/2025 Orders Only [facility] [address] [place] [id number] Allen Britt MD 01/02/2025 External Device Data [facility] ABSTRACTION Provider, Abstract 01/02/2025 Orders Only [facility] On[facility] H[facility] [address] [place] [phone] Allen Britt MD 12/22/2024 External Device Data [facility] ABSTRACTION Provider, Abstract 12/21/2024 External Device Data [facility] ABSTRACTION Provider, Abstract 12/18/2024 External Device Data [facility] ABSTRACTION Provider, Abstract 12/07/2024 Abstract [facility] H[facility] [address] [place] [address] Allen Britt MD 12/04/2024 External Device [...] Sign Reading Time Taken Comments Blood Pressure 150/130 01/14/2025 11:45 AM CDT Checked Manually Pulse 89 01/14/2025 11:27 AM CDT Temperature 35.7 C (96.3 F) 01/14/2025 11:27 AM CDT Respiratory Rate 15 01/14/2025 11:2 7 AM CDT Oxygen Saturation 98% 01/14/2025 11: 27 AM CDT Inhaled Oxygen Concentration - - Weight 71.8 kg (158 lb 3.2 oz) 01/14/2025 11:27 AM CDT Height 170.2 cm (5' 7 ) 08/01/2023 3:38 PM CDT Body Mass Index 24.78 08/01/2023 3:38 PM CDT Plan of Treatment Upcoming Encounters Date Type Department Care Team (Late st Contact Info) Description 02/13/2025 4:15 PM CDT Telephone Check Up [facility] Oncology and H[facility]ology [facility] [address] [place] [address] Allen Britt MD [address] [place] [address] Health Maintenance Due Date Last Done Comments DTAP/TDAP/TD VACCINES (1 - Tdap) 1994 HEPATITIS B VACCINES (1 of 3 - 19+ 3-dose series) 1994 HPV/Cotest (21-29) 02/06/1996 HPV/Cotest (30-65) 2005 BREAST CANCER SCREENING 2015 COLORECTAL SCREENING 02/06/2020 Colorectal Cancer Screening 02/06/2020 FIT-DNA Q 3 years 02/06/2020 FIT/FOBT Q 1 year 02/06/2020 Flex Sig/CT Colonography Q 5 years 02/06/2020 INFLUENZA VACCINE (#1) 2024 Preventative Visit- Commercial 10/17/2024 0 05/28/2024, 05/23/2023, 05/10/2022, Additional history exists CERVICAL CANCER SCREENING 05/28/2027 PAP SMEAR 05/28/2027 05/28/2024, 05/23/2023 Procedures Procedure Name Priority Date/Time Associated Diagnosis Comments IGG Routine 12/31/2024 3:36 PM CDT COMPREHENSIVE METABOLIC PANEL Routine 12/31/2024 2:30 PM CDT from Last 3 Months Results * IGG (12/31/2024 3:36 PM CDT) Blood Allen Britt MD CHEMISTRY ORDERABLES Final Resu lt * COMPREHENSIVE METABOLIC PANEL (12/31/2024 2:30 PM CDT) Blood Allen Britt MD CHEMISTRY ORDERABLES Final Resu lt from Last 3 Months Insurance [facility] BLUE ACCESS CHOICE [employer] ACCESS/TRUE [employer] P[employer] Care Teams Rehab Specialist Relationship Specialty Start Date End Date Anupam Segundo MD [address] [id number] PCP - General Internal Medicine 07/21/23
== END 2025-01-29 11:47 | disposition home or self-care (01) ==
PROVIDERS: Visit Provider Internal Medicine Hematology & Oncology
DX: C90.00 Multiple myeloma not having achieved remission (principal); E04.1 Nontoxic single thyroid nodule
CPT/HCPCS: 78815; A9552

== ENCOUNTER 2025-05-13 09:32 | Outpatient (CLI) | payer BC, SELFPAY ==
--- OUTSIDE RECORDS SUMMARY | 2025-05-13 09:52 | XMS_ITS | Data Portability ---
Author Organization [facility] Address [address] [place] [address] Care Team Providers Care Cath Lab Radiological Technologist Name Role Phone LARA ESPINO Primary Care Provider [phone] Assessment Encounter Date Assessment Date Assessment LastModified [...] a year unless there are new symptoms. [email or web address] Not available 05/23/2023 10:45:57 05/28/2024 05/28/2024 Annual gynecological exam performed. Patient will come back in a year unless there are new symptoms. [email or web address] Not available 05/28/2024 09:34:32 Plan of Treatment Reminders Order Date Submit Date Provider Last Modified By Organization Details Last Modified Time Details Appointments [facility] 2024 09:30A M LISETTE Ortiz Not available Not available Not available Lab None recorded. Referral None recorded. Procedures None recorded. Surgeries None recorded. Imaging MAMMO, screening , digital, bilateral 2023 024 FRANCES [facility], [address], [place], [address], 01/27/2025 05:01:10 MAMMO, screening , digital, bilateral [email or web address] [place] [address] Imaging, [address], [place], [address], 12/15/2023 16:22:48 Medication Orders None recorded. Patient TargetsNo targets recorded. Patient InstructionsNo instructions recorded. Reason for Referral None Reported. Results Created Date Observation Date Name Description Value Unit Range Abnormal Flag Note LastModifiedBy Organization Detail LastModifiedTime 04/01/20 21 04/01/2021 pap, IG + HR HPV image guided Pap, HPV regardless of Pap result SEE RESULT S BELOW CASE REPOR T: Cytol ogy Gynec ologi josh Repor t Case: [id number] Autho rylan mclaughlin Provi zach: Taty Petit NP Colle cted: 04/01 1330 Order ing Locat ion: [place] Patho logy Recei janki: 04/02 0151 First Scree n: Alaina linn, Zafar am, CT Patho logis t: Miroslava [...] over 45 years of age Elect josue sammy [place] d by Miroslava Ayala MD on 2020 [...] Thinp rep Imagi ng Syste m. CLINI JOSH INFOR MATIO N: Menst rual Statu s: LMP (if appli cable ): 2020 Clini josh Histo ry/Pr eviou s Pap: Type of Neopl domenico (if appli cable ): Other Histo ry: Hormo kade (if appli cable ): PAP EDUCA PATRICK L NOTE: Endom etria l cells after age 45, parti cular ly out of phase or after menop ause, may be assoc iated with zehra hannah endom etriu m, hormo nal alter ation s and less commo nly, endom etria l/alyssa rine abnor malit ies. Clini josh magnolia hannah is recom ying garza Not Available [facility] (Lab) [address], [place], [address], 04/03/2021 15:45:27 04/28/20 21 04/28/2021 SURGI JOSH PATHO LOGY surgical pathology ([facility]) SEE RESULT S BELOW CASE REPOR T: Surgi josh Patho logy Repor t Case: [id number] Autho rylan mclaughlin Provi zach: Taty Petit NP Colle cted: 04/28 1333 Order ing Locat ion: [place] Patho logy Recei janki: 04/28 2353 Patho logis t: Edna Morris MD Speci men: Endom etriu m, EMB BX FINAL DIAGN OSIS: Endom etriu m, biops y: -Inac tive endom etriu m, negat elvie for hyper plasi a or carci noma. Elect josue duque by Edna Morris MD on 2020 at 11:00 AM ----- ----- ----- ----- ----- ----- ----- ----- ----- ----- ----- ----- ----- ----- ----- ----- ----- ---- CLINI OJSH INFOR MATIO N: not provi ded MICRO [...] ed by Ana Erickson on Not Available [facility] (Lab) [address], [place], [address], 04/29/2021 12:04:08 04/28/20 21 04/28/2021 pregn brad test, urine HCG negati ve Not Available [facility] [address] [place], [address], 04/28/2021 09:37:58 05/10/20 22 05/10/2022 IMAGE GUIDE D PAP AND HPV REGAR DLESS image guided Pap, HPV regardless of Pap result SEE RESULT S BELOW CASE REPOR T: Cytol ogy Gynec ologi josh Repor t Case: [id number] Autho rylan mclaughlin Provi zach: Ainsley holder , Randolph Krishna cted: 05/10 1742 DEMAND PLANNING ANALYST Order ing Locat ion: [place] Patho logy [...] Thinp rep Imagi ng Syste m. CLINI JOSH INFOR MATIO N: Menst rual Statu s: LMP (if appli cable ): Clini josh Histo ry/Pr eviou s Pap: Type of Neopl domenico (if appli cable ): Signi fican t Clini josh Findi ngs: Other Histo ry: Hormo kade [...] ng do not corre late with physi josh and/o r histo rical findi ngs, furth er inves tigat ion is recom ying d, as clini eliane warra nted. Not Available [facility] [address] [place], [address], 05/14/2022 09:58:01 05/23/20 23 05/23/2023 IMAGE GUIDE D PAP AND HPV REGAR DLESS image guided Pap, HPV regardless of Pap result SEE RESULT S BELOW CASE REPOR T: Cytol ogy Gynec ologi josh Repor t Case: [id number] Autho rimercy g Provi zach: Kiara Hanks, DEMAND PLANNING ANALYST Colle cted: 05/23 1022 Order ing Locat ion: [place] Patho logy Recei janki: 05/24 0757 First Scree n: Nacha mpass ak, Sivil ay, CT Speci men: Scree jose Pap - Image d, Cervi x STATE MENT OF ADEQU ACY: Satis facto ry for evalu ation Trans forma tion zone compo nent prese nt FINAL DIAGN OSIS: Negat elvie for Intra epith elial Lesio n or Neal keith (NIL) . Jamal christianson rita d by Ortiz vidal, Reggie linda, CT on 023 at 4:57 PM ----- ----- ----- ----- ----- ----- [...] ut diffe renti ation . COMME NT: This speci men was revie wed by a Cytot echno logis t and/o r Patho logis t (as indic ated in this repor t) after evalu ation using the Thinp rep Imagi ng Syste m. CLINI JOSH INFOR MATIO N: Menst rual Statu s: LMP (if appli cable ): Clini josh Histo ry/Pr eviou s Pap: Type of Neopl domenico (if appli cable ): Signi fican t Clini josh Findi ngs: Other Histo ry: Hormo kade [...] ng do not corre late with physi josh and/o r histo rical findi ngs, allen oswald inves tigat ion is recom ying duque, as clini eliane medina nted. Not Available [facility] (Lab) [address], [place], [address], 05/24/2023 18:01:08 05/28/20 24 05/28/2024 IMAGE GUIDE D PAP AND HPV REGAR DLESS image guided Pap, HPV regardless of Pap result SEE RESULT S BELOW CASE REPOR T: Cytol ogy Gynec ologi josh Repor t Case: [id number] Autho rylan lissette Provi zach: Kiara Hanks, SANTOSH Colle cted: 05/28 0952 Order ing Locat ion: [place] Patho logy Recei janki: 05/29 0807 First Junee n: Nessa Acuna ret, CT Speci men: Rao garcia Pap - Image d, Cervi x STATE MENT OF ADEQU ACY: Satis facto ry for evalu ation Trans forma tion zone compo nent prese nt ----- ----- ----- ----- ----- ----- ----- ----- ----- ----- ----- ----- ----- ----- ----- ----- ----- ---- FINAL DIAGN OSIS: Negat elvie for Intra epith elial Radha hannah or Neal keith ([facility]) . Elect josue salinas d by Nessa Acuna ret, CT on 2023 at 5:36 AM ----- ----- ----- ----- ----- ----- [...] ut diffe renti ation . COMME NT: This speci men was revie wed by a Cytot echno logis t and/o r Patho logis t (as indic ated in this repor t) after evalu ation using the Thinp rep Imagi ng Syste m. CLINI JOSH INFOR MATIO N: Menst rual Statu s: LMP (if appli cable ): Clini josh Histo ry/Pr eviou s Pap: Type of Neopl domenico (if appli cable ): Signi fican t Clini josh Findi ngs: Other Histo ry: Hormo kade [...] ng do not corre late with physi josh and/o r histo rical findi ngs, furth er inves tigat ion is recom ying d, as clini eliane medina nted. Not Available [facility] (Lab) [address], [place], [address], 06/03/2024 06:41:06 Result Notes None recorded. Problems Name Problem SNOMED Code Status Onset Date Resolution Date Notes Provider Name and Address Organization Details Recorded Time Speciali zed medical examinat ion Completed 201104/01/2021 Routine gynecolo gical examinat ion;Prac rosie ID: 0001 Azul Wynn [facility] 1 10:00:08 Screenin g for malignan t neoplasm of cervix Completed 201104/01/2021 Pap Smear;Pr actice ID: 0001 Azul Wynn eusebio, [facility] 09:59:56 Dysfunct ional uterine bleeding Completed 201204/01/2021 Other disorder s of menstrua tion and other abnormal bleeding from female genital tract;Re corded Elsewher e: No [facility]at ion[facility] our[facility]: EHR Warehouse Operations Manager zonia: N Practi ce ID: 0001 Papito lable Time: 11:15:00 AM Azul Wynn eusebio, [facility] 09:59:37 Premenop ausal menorrha miguel Completed 201204/01/2021 Premenop ausal menorrha miguel;Prac rosie ID: 0001 Azul Wynn [facility], [facility] 09:59:54 Uses IUD (intraut erine device) contrace ption [id number] Completed 201204/01/2021 Surveill ance of intraute rine contrace ptive device;P ractice ID: 0001 Azul Wynn eusebio, [facility] 09:59:[address] Concept Completed 201504/01/2021 Encntr for manager of corporate communications exam (general ) (routine ) w/o abn findings ;Practic e ID: 0001 Azul Wynn eusebio, [facility] 10:00:06 Screenin g for malignan t neoplasm of rectum Completed 201504/01/2021 Encounte r for screenin g for malignan t neoplasm of rectum;P ractice ID: 0001 Azul kaplan [facility] 09:59:[address] Concept Completed 201604/01/2021 Encntr for general adult medical exam w/o abnormal findings ;Recorde d Elsewher e: No [facility]at [facility] S ource: EHR Warehouse Operations Manager zonia: N Practi ce ID: 0001 Papito lable Time: 09:30:00 AM Azul kaplan, [facility] 1 10:00:01 Trichomo nal vulvovag initis 81682784 Completed 201604/01/2021 Trichomo nal vulvovag initis;P ractice ID: 0001 Azul Wynn [facility], [facility] 1 10:00:14 Syphilis test finding 600495988 Completed 201604/01/2021 Encntr screen for infectio ns w sexl mode of transmis s;Practi ce ID: 0001 Azul Wynn [facility] 1 10:00:11 Abnormal uterine bleeding [id number] 100 Completed 201704/01/2021 Other specifie d abnormal uterine and vaginal bleeding ;Practic e ID: 0001 Azul Wynn [facility] 09:59:24 Finding of menstrua l bleeding Completed 201704/01/2021 Excessiv e and frequent menstrua tion with regular cycle;Pr actice ID: 0001 Azul Wynn [facility] 10:00:19 Anemia 177890126 Completed 201704/01/2021 Anemia;R ecorded Elsewher e: No Locat ion: [facility] S ource: EHR Warehouse Operations Manager zonia: N Practi ce ID: 0001 Papito lable Time: 10:10:00 AM [facility] 09:59:26 Insertio n of intraute rine contrace ptive device Completed 201704/28/2021 Encounte r for insertio n of intraute rine contrace ptive device;Daniel castillo ID: 0001 Azul kaplan, [facility] 1 09:30:05 Pregnanc y test negative 243977481 Completed 201704/01/2021 Encounte r for pregnanc y test, result negative ;Practic e ID: 0001 Azul kaplan, [facility] 1 09:59:51 Disorder of intraute rine contrace ptive device Completed 201904/28/2021 [facility] compl of intraute rine contrace ptive device, init encntr;P ractice ID: 0001 Azul kaplan, [facility] 09:30:03 Finding of pattern of menstrua l cycle 636879258 Completed 201904/01/2021 Menometr orrhagia ;Recorde d Elsewher e: No Locat ion: [facility] S ource: EHR Warehouse Operations Manager zonia: N Arthur ce ID: 0001 Papito lable Time: 08:45:00 AM Azul Wynn [facility] 1 09:59:40 Imaging of abdomen abnormal 213276659 Completed 201904/01/2021 Abn findings on dx imaging of abd regions, inc retroper iton;Rec orded Elsewher e: No Locat ion: [facility] S ource: [facility] Warehouse Operations Manager zonia: N Arthur ce ID: 0001 Papito lable Time: 03:06:45 PM Azul akplan, [facility] 1 09:59:42 Problem Notes None recorded. Procedures Surgical History Date Name Laterality Status Provider Name and Address Organization Details Recorded Time 04/28/20 21 Endometrial Biopsy completed Taty Rojo CNM [address], [place], [address], [place] [facility] 04/28/2021 10:02:44 04/28/20 21 endometrial biopsy completed Azul Wynn [facility] 04/28/2021 09:31:00 11/25/19 18 endometrial biopsy completed Azul Wynn [facility] 07/22/2020 13:53:08 Imaging Results None [...] Elsewher e: Yes Loca tion: [facility] odify By: alvarado Raya ntdarek DateTime : 11/20/19 12 06:34:49 PM Not [...] Prescrib ed Elsewher e: Yes [facility]oca [facility] odify By: nila brannon DateTime : 11/20/19 12 06:34:49 PM Not Available Not Available Not Available potassium 99 mg tablet 11/23 completed Prescrib ed Elsewher e: Yes [facility]oca [facility] odify By: verito brannon DateTime : 11/20/19 12 06:34:49 PM Not [...] ed Elsewher e: No Locat ion: [facility] odify By: darinel mccann DateTime : 01/03/20 13 01:47:02 PM Not Available Not Available Not Available Flagyl 500 mg tablet take 4 tablets by mouth at one time 06/10 completed Prescrib ed Elsewher e: No Locat ion: [facility] odify By: verito brannon DateTime : 06/09/20 17 02:38:52 PM Not Available Not Available Not Available losartan 25 mg tablet take 1 tablet by oral route every day 04/01 completed Prescrib ed Elsewher e: Yes Loca tion: [facility] odify By: nila kentunter DateTime : 09/12/20 18 09:30:00 AM Not Available Not Available Not Available Provera 10 mg tablet take 1 tablet by oral route 2 times every day until bleeding subsides 09/12 completed Prescrib ed Elsewher e: No Locat ion: [facility] odify By: nila kentunter DateTime : 11/25/19 18 10:10:06 AM Not Available Not Available Not Available norethind renay (contrace ptive) 0.35 mg tablet TAKE 1 TABLET BY MOUTH ONCE DAILY 06/18 completed Switched to Slynd Not Available Not Available Not Available lisinopri l 2.5 mg tablet take 1 tablet by oral route every day 09/12 completed Prescrib ed Elsewher e: Yes Loca tion: [facility] odify By: nila kentunter DateTime : 11/23/19 12 10:45:00 AM Not [...] Body mass index (BMI) Body weight Systolic And Diastolic Systolic And Diastolic Provider Name and Address Organization Details Last Updated DateTime 04/01/2021 166.37 cm 28.4 kg/m2 23514.48 g 190/126 mm[Hg] 160/120 mm[Hg] Azul Wynn [facility] 09:58:13 Date Recorded Body height Body mass index (BMI) Body weight Systolic And Diastolic Systolic And Diastolic Provider Name and Address Organization Details Last Updated DateTime 04/28/2021 166.37 cm 28 kg/m2 58417.3 g 192/123 mm[Hg] 180/100 mm[Hg] Azul Wynn [facility] 09:36:39 Date Recorded Body height Body mass index (BMI) Body weight Systolic And Diastolic Provider Name and Address Organization Details Last Updated DateTime 05/10/2022 166.37 cm 26.9 kg/m2 43382.15 g 126/68 mm[Hg] Corina Trenton [facility] 05/10/2022 10:42:55 Date Recorded Body height Body mass index (BMI) Body weight Systolic And Diastolic Provider Name and Address Organization Details Last Updated DateTime 05/23/2023 166.37 cm 25.2 kg/m2 46801.22 g 124/84 mm[Hg] Aileen Manzanares [facility] 05/23/2023 10:46:21 Date Recorded Body height Body mass index (BMI) Body weight Systolic And Diastolic Provider Name and Address Organization Details Last Updated DateTime 05/28/2024 165.1 cm 25.8 kg/m2 07382.82 g 134/84 mm[Hg] Mamie Jimenez [facility] 05/28/2024 09:50:51 Social History Question Answer Notes LastModified by Organizat ion Details LastModified Time Tobacco Smoking Status Former Smoker Aileen Manzanares null, [facility] 05/23/2023 10:46:42 Do You Have An Advance Directive? Yes [email or web address] Information n ot available 04/01/2021 Are You Blind Or Do You Have Difficulty Seeing? No [email or web address] Information n ot available 04/01/2021 What Is Your Level Of Caffeine Consumption? Moderate [email or web address] Information not available 04/01/2021 In The 14 Days Before Symptom Onset, Have You Had Close Contact With A Laboratory-confirm ed COVID-19 While That Case Was Ill? No [email or web address] Information n ot available 04/01/2021 In The 14 Days Before Symptom Onset, Have You Had Close Contact With A Person Who Is Under Investigation For COVID-19 While That Person Was Ill? No Information not available 04/01/2021 Have You Been To An Area Known To Be High Risk For COVID-19? No Information not available 04/01/2021 Are You Deaf Or Do You Have Serious Difficulty Hearing? No [email or web address] Information not available 04/01/2021 What Type Of Diet Are You Following? REGULAR [email or web address] Information n ot available 04/01/2021 What Is The Highest Grade Or Level Of School You Have Completed Or The Highest Degree You Have Received? [id number] [email or web address] Information not available 04/01/2021 Are There Any Guns Present In Your Home? Yes [email or web address] Information not available 04/01/2021 What Was The Date Of Your Most Recent Tobacco Screening? 04/28/2021 Information not available 05/23/2023 Do You Use Protection During Sex? Usually [email or web address] Information not available 04/01/2021 Do You Use Your Seat Belt Or Car Seat Routinely? Yes [email or web address] Information not available 04/01/2021 Do You Have Smoke And Carbon Monoxide Detectors In Your Home? Yes [email or web address] Information not available 04/01/2021 How Much Tobacco Do You Smoke? No [email or web address] Information not available 07/22/2020 Do You Use Sunscreen Routinely? No [email or web address] Information not available 04/01/2021 Have You Used IV Drugs? No [email or web address] Information not available 04/01/2021 Do You Have Difficulty Walking Or Climbing Stairs? No Information not available 05/23/2023 Sex: Unknown Functional Status Question Answer Note LastModified by Organizat ion Details LastModified Time Do you use any illicit or recreational drugs? No [email or web address] Information not available 04/01/2021 What is your level of alcohol consumption? None quit 2014 Information not available 04/01/2021 Do you or have you ever used smokeless tobacco? Never used smokeless tobacco Information not available 05/23/2023 Are you able to walk? YESWOREST [email or web address] Information not available 04/01/2021 Are you able to care for yourself independently? 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 No Information not available 05/23/2023 Do you or have you ever used e-cigarettes or vape? Never used electronic cigarettes Information not available 05/23/2023 What is your exercise level? Occasional [email or web address] Information not available 07/22/2020 Mental Status Question Answer Note LastModified by Organization D etails LastModified Time Do you feel stressed (tense, restless, nervous, or anxious, or unable to sleep at night)? [id number] Information not available 05/23/2023 Family History Relationship Description Onset Age of [...] SNOMED-CT Code Diagnosis ICD10 Code Diagnosis Note 68503 Taty Rojo [place] [address] [address] 07/22/2020 10:57:35 07/22/2020 18:01:11 Menorrhagia 376080781 N92.0 Hypertensive disorder 38 289088 I10 68819 Taty Rojo [place] [address] [address] 04/01/2021 09:35:00 04/01/2021 10:09:00 Gynecologic examination 21738357 Z01.[address] [facility] [address],[place] [address] 04/28/2021 09:16:54 04/28/2021 10:04:45 Specimen with abnormal presence of endometrial cells 204556909 R87.619 [address] [facility] [address],[place] [address] 05/10/2022 10:11:36 05/10/2022 11:02:59 Gynecologic examination 87714975 Z01.419 Suggested Calcium with Vitamin D 1200-1500m g daily. Patient advised to get an annual flu shot in the fall and she could obtain at [facility] or [facility] take care clinic. Also to obtain TDap vaccinatio [...] UTD PCPMammo ordered Contracept ion care management 775549527 Z30.9 CUrrently on SLYNDDoing extremely wellGet's this Rx from the company directly. [id number] LISETTE Ortiz [facility] [address] [address] 05/23/2023 10:27:00 05/23/2023 11:06:41 Gynecologic examination 58593948 Z01.419 Suggested Calcium with Vitamin D 1200-1500m g daily. Patient advised to get an annual flu shot in the fall and she could obtain at [facility] or [facility] care clinic. Also to obtain TDap vaccinatio [...] in 1 year or sooner if needed Contracept ion care management 457343058 Z30.9 Screening for malignant neoplasm of breast 650734473 Z12.39 [id number] LISETTE rOtiz [facility] [address] [address] 05/28/2024 09:38:16 05/28/2024 14:12:17 Gynecologic examination 73021092 Z01.419 WWEpap updateddec lined STI screenmamm manjinder ordered and encouraged colon cancer screening discussed, [...] answered. Screening for malignant neoplasm of breast 850971890 Z12.39 [facility] 590570160 Z30.9 upon chart review found pt has been diagnosed with kidney diseasecur rently on slynd, recommend alternativ e method (mini-pill , IUD) as slynd is generally avoided in pts with renal impairment Health Concerns Section Related Observation LastModified by Organization Detai ls LastModified Time None Recorded Concern Status LastModified by Organization Details LastModified Time None Recorded Advance Directives Directive Y: Payers Insurance Date Sequence Insurance Name Policy Number Policy Joy Covered Member ID Joy Member ID Guarantor Name 05/23/2023 *SELF PAY* Ghazala Jo 05/23/2023 SLIDING FEE SCHEDULE - DISCOUNT Megan Jo 05/03/2025 1 [place] [id number] Megan Jo [id number] Megan Jo 05/03/2025 1 [place] [facility] [place]) [id number] Megan Jo [id number] Megan Jo OBGyn Episode Ob Episode Information Episode Created Date Number of Fetuses Patient Bloodtype Patient rh Status Prepregnancy Weight lbs Domestic Partner Domestic Partner Phone Father Name Sole Inker Status 07/22/20 20 1 CLOSED Fetus Data [...] Complications Tubal Sterilization Discharge Date Comments 0 2000 induced Discharge Information Feeding Method Contraceptive Method Maternal HG B and HCT Levels Ob Episode Information Episode Created Date Number of Fetuses Patient Bloodtype Patient rh Status Prepregnancy Weight lbs Domestic Partner Domestic Partner Phone Father Name Sole Inker Status 07/22/20 20 1 CLOSED Fetus Data [...]
--- OUTSIDE RECORDS SUMMARY | 2025-05-13 09:52 | XMS_ITS | Encounter Summary ---
Author Organization [facility] Address [address] [place] [address] Care Team Providers Care Consumer Insight Analyst Name Role Phone Unavailable Primary Care Provider Unavailabl e Encounter Details Date Type Department Care Team (Late st Contact Info) Description 09/12/2023 Lab Requisition [facility] - Pathology Lab [address] [place] [phone] Joe Salgado MD [address] [place] [address] Multiple myeloma not having achieved remission Social History Tobacco Use Types Packs/Day Years Used Date Smoking Tobacco: Never Assessed Comments Unknown Sex and Gender Information Value Date Recorded Sex Assigned at Not on file Legal Sex Female 3:50 PM FIXED INCOME TRADING VICE PRESIDENT Gender Identity Not on file Sexual Orientation Not on file documented as of this encounter Plan of Treatment Not on file documented as of this encounter Procedures Procedure Name Priority Date/Time Associated Diagnosis Comments FLOW CYTOMETRY BONE MARROW Routine 09/12/2023 9:30 AM FIXED INCOME TRADING VICE PRESIDENT Multiple myeloma not having achieved remission ([facility]) documented in this encounter Results * FLOW CYTOMETRY BONE MARROW (09/12/2023 9:30 AM FIXED INCOME TRADING VICE PRESIDENT) Case Report Flow Cytometry Case: [id number] Authorizing Provider: Srinivasan Salgado MD Collected: 09/12/2023 09:30 AM Ordering Location: [facility] Care Pathology Lab Received: 09/12/2023 04:00 PM Pathologist: Corina Parks MD Specimen: Bone Marrow 09/13/2023 10:05 AM FIXED INCOME TRADING VICE PRESIDENT [facility] PATHOLOGY LAB Final Diagnosis Bone marrow, flow cytometry: - Minute lambda predominant CD138+/CD38+ plasma cell population detected (0.5% of overall events) 09/13/2023 10:05 AM [facility] PATHOLOGY LAB at [address]5 FIXED INCOME TRADING VICE PRESIDENT Flow Cytometry Interpretation Viability: 92% B-cells: polytypic, kappa:lambda ratio 1.8:1 T-cells: not increased Blasts: not increased, 0.63% of overall events Plasma cells: monoclonal, lambda-restricted , subset is CD56 positive, aberrant loss of CD19 in a subset. A bone marrow aspirate smear prepared from the flow cytometry specimen has been reviewed for supervisor quality control purposes. 09/13/2023 10:05 AM [facility] PATHOLOGY LAB Flow Cytometry Results Differential Result Comment Flow Cell Count /uL 36,900 Total Viability % 92.0 Lymphocytes % 25 Dim CD45 Region % 3 Monocytes % 8 Granulocytes % 65 09/13/2023 10:05 AM [facility] PATHOLOGY LAB Reason for test Multiple myeloma not having achieved remission (CMS/HCC) 203.00 09/13/2023 10:05 AM [facility] PATHOLOGY LAB Client Specimen ID # [id number] 09/13/2023 10:05 AM [facility] PATHOLOGY LAB Number of markers 14 were performed. A-2 Flow CD10 A-3 Flow CD13 A-5 Flow CD20 A-13 Flow CD117 A-14 FLOW CD138 A-1 Flow CD5 A-4 Flow CD19 A-6 Flow CD33 A-7 Flow CD34 A-8 Flow CD45 A-11 Flow CD38 A-12 Flow CD56 A-9 Cavalero+CD19+ A-10 Lambda+CD19+ 09/13/2023 10:05 AM [facility] PATHOLOGY LAB Pathologist Location at [facility] 09/13/2023 10:05 AM [facility] PATHOLOGY LAB Disclaimer Test performed at [facility], [address] [place] [address], [id number]. *The established laboratory minimum viability is 70%. [...] high complexity clinical testing. 09/13/2023 10:05 AM [facility] PATHOLOGY LAB Embedded Images 10:05 AM [facility] PATHOLOGY LAB Pathology/Cytolo gy BONE MARROW SPECIMEN / Unknown 09/12/2023 9:30 AM FIXED INCOME TRADING VICE PRESIDENT 09/12/2023 4:00 PM FIXED INCOME TRADING VICE PRESIDENT Joe Salgado MD LAB - PATHOLOGY/CYT OLOGY ORDERABLES Final Result [facility] PATHOLOGY LAB [address] [phone] documented in this encounter Visit Diagnoses Diagnosis Multiple myeloma not having achieved remission (HCC) Multiple myeloma, without mention of having achieved remission documented in this encounter
--- OUTSIDE RECORDS SUMMARY | 2025-05-13 09:52 | XMS_ITS | Clinical Summary ---
Author Organization [facility] Address [address] [place] [address] Care Team Providers Care Associate Medical Director Name Role Phone Anupam Segundo MD Primary Care Provider + [phone] Allergies No known active allergies Medications cloNIDine HCL (CATAPRES) 0.3 mg tablet Take 0.3 mg by mouth 3 times daily. Active losartan (COZAAR) 50 mg tablet Take 50 mg by mouth daily. Active hydroCHLOROthiaz stephany (HYDRODIURIL) 12.5 mg tablet Take 12.5 mg by mouth daily. Active Active Problems No known active problems Encounters Date Type Department Care Team Description 05/10/2025 Abstract [facility] Oncology and Hematology [facility] [address] [place] [phone] Allen Britt MD 05/01/2025 External Device Data STL ABSTRACTION Provider, Abstract 04/30/2025 External Device Data STL ABSTRACTION Provider, Abstract 04/26/2025 Abstract [facility] Oncology and Hematology [address] [place] [phone] Allen Britt MD 04/02/2025 External Device Data STL ABSTRACTION Provider, Abstract 03/07/2025 External Device Data STL ABSTRACTION Provider, Abstract 03/06/2025 External Device Data STL ABSTRACTION Provider, Abstract 03/05/2025 External Device Data STL ABSTRACTION Provider, Abstract 02/13/2025 4:15 PM CDT Telephone Check Up [facility] Oncology and Hematology [facility] [address] [place] [phone] Allen Britt MD Multiple myeloma, remission status unspecified (CMS/HCC) (Primary Dx) from Last 3 Months Family History Medical [...] 11:27 AM CDT Height 170.2 cm (5' 7) 08/01/2023 3:38 PM CDT Body Mass Index 24.78 08/01/2023 3:38 PM CDT Plan of Treatment Upcoming Encounters Date Type Department Care Team (Late st Contact Info) Description 05/22/2025 10:00 AM CDT Office Visit [facility] Oncology and Hematology - [place] [address] [facility] [address] [place] [address] Allen Britt MD [address] [facility] [address] [place] [address] Health Maintenance Due Date Last Done Comments DTAP/TDAP/TD VACCINES (1 - Tdap) 1994 HEPATITIS B VACCINES (1 of 3 - 19+ 3-dose series) 1994 ZOSTER VACCINE (1 of 2) 1994 HPV/Cotest (21-29) 02/06/1996 HPV/Cotest (30-65) 2005 BREAST CANCER SCREENING 2015 COLORECTAL SCREENING 02/06/2020 Colorectal Cancer Screening 02/06/2020 FIT-DNA Q 3 years 02/06/2020 FIT/FOBT Q 1 year 02/06/2020 Flex Sig/CT Colonography Q 5 years 02/06/2020 Preventative Visit- Commercial 10/17/2024 0 05/28/2024, 05/23/2023, 05/10/2022, Additional history exists INFLUENZA VACCINE (#1) 2025 CERVICAL CANCER SCREENING 05/28/2027 PAP SMEAR 05/28/2027 05/28/2024, 05/23/2023 Insurance BCBS OUT OF STATE Care Teams Associate Medical Director Relationship Specialty Start Date End Date Anupam Segundo MD [address] [place] [phone] PCP - General Internal Medicine 07/21/23
--- OUTSIDE RECORDS SUMMARY | 2025-05-13 09:52 | XMS_ITS | Encounter Summary ---
Author Organization [facility] Address [address] [place] [address] Care Team Providers Care Station Engineer Chief Name Role Phone Unavailable Primary Care Provider Unavailabl e Encounter Details Date Type Department Care Team (Late st Contact Info) Description 09/13/2023 Lab Requisition [facility] - Pathology Lab [address] [place] [address] Joe Salgado MD [address] [address] Illness, unspecified Social History Tobacco Use Types Packs/Day Years Used Date Smoking Tobacco: Never Assessed Comments Unknown Sex and Gender Information Value Date Recorded Sex Assigned at Not on file Legal Sex Female 3:50 PM LEAD AUDITOR Gender Identity Not on file Sexual Orientation Not on file documented as of this encounter Plan of Treatment Not on file documented as of this encounter Procedures Procedure Name Priority Date/Time Associated Diagnosis Comments BONE MARROW BIOPSY (STL) Routine 09/12/2023 9:30 AM LEAD AUDITOR Illness, unspecified documented in this encounter Results * BONE MARROW BIOPSY (STL) (09/12/2023 9:30 AM LEAD AUDITOR) Case Report Bone Marrow Patholog y Report Case: [id number] Authorizing Provider: Srinivasan Salgado MD Collected: 09/12/2023 09:30 AM Ordering Location: [facility] Care Pathology Lab Received: 09/13/2023 12:19 PM Pathologist: Corina Parks MD Specimens: A) - Bone Marrow Clot B) - Bone Marrow Core 09/14/2023 3:47 PM LEAD AUDITOR U PATHOLOGY LAB Final Diagnosis Bone marrow, aspirate, clot section, and core biopsy: - Mildly hypocellular marrow for age with maturing trilineage hematopoiesis and mild involvement by plasma cell neoplasm (~15% of marrow cellularity). - See description. Peripheral blood smear: - Essentially normal smear. - See description. 09/14/2023 3:47 PM [facility] PATHOLOGY LAB at [address] LEAD AUDITOR AP Comment Immunohistochemistry performed for CD138 to assess staining cells in an architectural context show ~15% of marrow cellularity to represent plasma cells. Overall findings are those of mild involvement by plasma cell neoplasm. 09/14/2023 3:47 PM [facility] PATHOLOGY LAB Peripheral Smear Description RBC: normocytic, normochromic, mild rouleaux formation WBC: normal in number and morphology Platelets: normal in number and morphology 09/14/2023 3:47 PM [facility] PATHOLOGY LAB Bone Marrow Aspirate Differential count [...] stain): no ring sideroblasts. 09/14/2023 3:47 PM [facility] PATHOLOGY LAB Bone Marrow Core Biopsy and [...] similar to core biopsy. 09/14/2023 3:47 PM [facility] PATHOLOGY LAB Flow Cytometry Summary Bone marrow, flow cytometry ([id number]): - Minute lambda predominant CD138+/CD38+ plasma cell population detected (0.5% of overall events) 09/14/2023 3:47 PM [facility] PATHOLOGY LAB Clinical History Multiple myeloma. 09/14/2023 3:47 PM [facility] PATHOLOGY LAB Materials Received Received are 20 slide(s) and 3 blocks labeled [id number] along with a copy of the outside pathology report. The materials originate from [facility], [address] [place] [address] [address], [place] [id number]. All original materials are returned to the referring institution, along with a copy of our final report. 09/14/2023 3:47 PM [facility] PATHOLOGY LAB Pathologist Location at [facility] 09/14/2023 3:47 PM [facility] PATHOLOGY LAB Disclaimer The performance characteristics of all immunohistochemical and indirect immunofluorescence stains (if any) cited in this report were determined by the Histopathology Laboratory of [facility]. Some of these tests were developed [...] the attending (teaching) pathologist. 09/14/2023 3:47 PM [facility] PATHOLOGY LAB Embedded Images 09/14/2023 3:47 PM [facility] PATHOLOGY LAB Pathology/Cytology BONE MARROW SPECIMEN / Unknown 09/12/2023 9:30 AM LEAD AUDITOR 09/13/2023 12:19 PM LEAD AUDITOR Miscellaneous samples (specimen) BONE MARROW SPECIMEN / Unknown 09/12/2023 9:30 AM LEAD AUDITOR 09/13/2023 12:19 PM LEAD AUDITOR us Joe Salgado MD LAB - PATHOLOGY/CYT OLOGY ORDERABLES Final Result [facility] PATHOLOGY LAB [address] [facility] [place] [address], [facility] [phone] documented in this encounter Visit Diagnoses Diagnosis Illness, unspecified documented in this encounter
--- OUTSIDE RECORDS SUMMARY | 2025-05-13 09:52 | XMS_ITS | Clinical Summary ---
Author Organization [facility] [employer] Address [address] [place] [address] Care Team Providers Care Corporate Quality Assurance Manager Name Role Phone Unavailable Primary Care Provider Unavailabl e Source Comments [facility] [employer],non-owned Affiliates and Associated Physician Practices is amultiple site organization consisting of ambulatory clinics and hospital sitesin [place], [place], [place] and [place]. This disclosure is being madepursuant to the Care Everywhere program and may not contain all information available regarding this patient. Last updated 18.[facility] [employer] Social History Tobacco Use Types Packs/Day Years Used Date Smoking Tobacco: Never Assessed Comments Unknown Sex and Gender Information Value Date Recorded Sex Assigned at Not on file Legal Sex Female 3:50 PM NETWORK PLANNER Gender Identity Not on file Sexual Orientation [...] SCREENING 1975 LIPID TESTING 1975 MAMMOGRAM 1975 HIV SCREENING 1990 HEPATITIS C SCREENING 01/31/1993 DTAP/TDAP/TD VACCINES (1 - Tdap) 1994 HEPATITIS B VACCINE (1 of 3 - 19+ 3-dose series) 1994 PAP SMEAR 02/06/1996 COVID-19 VACCINE (1 - 2023-2 5 season) 2024 DEPRESSION SCREENING 10/17/2024 PNEUMOCOCCAL VACCINE 50+ (1 of 1 - PCV) 2025 ZOSTER VACCINE (1 of 2) 2025 INFLUENZA VACCINE (#1) 2025 HIB VACCINE Aged Out No longer [...]
[2025-05-13 10:04] LABS: Hematocrit 41.1 % (37.0-47.0); Hemoglobin 13.2 g/dL (12.0-15.0); Immature Granulocyte Percent A 0.2 % (0-0.5); Lymphocytes Absolute Auto 1.73 K/mm3 (0.9-3.2); Mean Corpuscular HGB Conc 32.1 g/dl (32-36); Mean Corpuscular Hemoglobin 26.4 pg (26-34); Mean Corpuscular Volume 82.2 fl (80-100); Nucleated Red Blood Cells Absolute Auto 0.000 K/mm3 (0.0-0.012); Nucleated Red Blood Cells Perc 0.0 % (0.0-0.2); Platelet Count Result 202 k/mm3 (150-375); Red Blood Count 5.00 M/mm3 (4.2-5.4); White Blood Count 4.9 K/mm3 (4.5-10.0)
[2025-05-13 11:24] LABS: Alanine Aminotransferase 20 U/L (6-35); Albumin Level 4.1 g/dL (3.5-5.1); Alkaline Phosphatase 59 U/L (38-126); Anion Gap 13 mmol/L (4-12); Aspartate Amino Transferase 36 U/L (14-36); Bilirubin,Total 0.4 mg/dL (0.2-1.3); Blood Urea Nitrogen 23 mg/dL (7-17); Calcium 10.2 mg/dL (8.4-10.2); Carbon Dioxide 28 mmol/L (22-30); Chloride 102 mmol/L (98-107); Estimated Glomerular Filt Rate 40; Glucose 117 mg/dL (65-110); Potassium 3.9 mmol/L (3.4-5.0); Sodium 143 mmol/L (137-145); Total Protein 8.1 g/dL (6.3-8.2)
[2025-05-13 11:34] LABS: Immunoglobulin G 928 mg/dL (700-1600); Immunoglobulin M 26 mg/dL (40-230)
[2025-05-13 17:17] LABS: Immunoglobulin A 3381 mg/dL (70-400)
[2025-05-14 15:09] LABS: Albumin 3.6 g/dL (2.9-4.4); Alpha-1-Globulin 0.2 g/dL (0.0-0.4); Alpha-2-Globulin 0.6 g/dL (0.4-1.0); Gamma Globulin 0.8 g/dL (0.4-1.8)
== END 2025-05-13 09:33 | disposition home or self-care (01) ==
LOC: ANHLAB 09:32
PROVIDERS: PCP Emergency Medicine; Visit Provider Internal Medicine Hematology & Oncology
DX: C90.00 Multiple myeloma not having achieved remission (principal)
CPT/HCPCS: 36415; 80053; 82784; 83521; 84155; 84165; 85025

== ENCOUNTER 2025-09-10 08:31 | Outpatient (CLI) | payer BC, SELFPAY ==
--- OUTSIDE RECORDS SUMMARY | 2025-09-10 08:41 | XMS_ITS | Clinical Summary ---
Author Organization [facility] Address [address] [address] Care Team Providers Care Shopper Marketing Manager Name Role Phone Anupam Segundo MD Primary Care Provider + [phone] Allergies No known active allergies Medications cloNIDine HCL (CATAPRES) 0.3 mg tablet Take 0.3 mg by mouth 3 times daily. Active losartan (COZAAR) 50 mg tablet Take 50 mg by mouth daily. Active hydroCHLOROthiaz stephany (HYDRODIURIL) 12.5 mg tablet Take 12.5 mg by mouth daily. Active Active Problems No known active problems Encounters Date Type Department Care Team Description 08/20/2025 External Device Data STL ABSTRACTION Provider, Abstract 08/14/2025 External Device Data STL ABSTRACTION Provider, Abstract 08/13/2025 External Device Data STL ABSTRACTION Provider, Abstract 08/07/2025 External Device Data STL ABSTRACTION Provider, Abstract 08/06/2025 External Device Data STL ABSTRACTION Provider, Abstract 07/03/2025 External Device Data STL ABSTRACTION Provider, Abstract 07/02/2025 External Device Data STL ABSTRACTION Provider, Abstract [...] Sign Reading Time Taken Comments Blood Pressure 186/126 05/22/2025 9:50 AM CDT Pulse 85 05/22/2025 9:48 AM CDT Temperature 36.3 C (97.3 F) 05/22/2025 9:48 AM CDT Respiratory Rate 16 05/22/2025 9:48 AM CDT Oxygen Saturation 97% 05/22/2025 9:48 AM CDT Inhaled Oxygen Concentration - - Weight 68.8 kg (151 lb 9.6 oz) 05/22/2025 9:48 A M CDT Height 170.2 cm (5' 7) 08/01/2023 3:38 PM CDT Body Mass Index 23.74 08/01/2023 3:38 PM CDT Plan of Treatment Upcoming Encounters Date Type Department Care Team (Late st Contact Info) Description 09/16/2025 10:00 AM LABORATORY APPARATUS GLASS BLOWER Office Visit [facility] Oncology and Hematology - [place] [address] [place] [address] [facility] [address] [place] [address] Allen Britt MD [address] [facility] [address] [place] [address] Health Maintenance Due Date Last [...] 05/28/2027 PAP SMEAR 05/28/2027 05/28/2024, 05/23/2023 Insurance [facility] BLUE ACCESS CHOICE Care Teams Shopper Marketing Manager Relationship Specialty Start Date End Date Anupam Segundo MD [address] [place] [address] PCP - General Internal Medicine 07/21/23
--- OUTSIDE RECORDS SUMMARY | 2025-09-10 08:41 | XMS_ITS | Encounter Summary ---
Author Organization [facility] Address [address] [place] [address] Care Team Providers Care Tripe Cooker Name Role Phone Unavailable Primary Care Provider Unavailabl e Encounter Details Date Type Department Care Team (Late st Contact Info) Description 09/13/2023 Lab Requisition [facility] - Pathology Lab [address] [place] [address] Joe Salgado MD [address] [address] Illness, unspecified Social History Tobacco Use Types Packs/Day Years Used Date Smoking Tobacco: Never Assessed Comments Unknown Sex and Gender Information Value Date Recorded Sex Assigned at Not on file Legal Sex Female 3:50 PM AGRICULTURAL EQUIPMENT MECHANIC Gender Identity Not on file Sexual Orientation Not on file documented as of this encounter Plan of Treatment Not on file documented as of this encounter Procedures Procedure Name Priority Date/Time Associated Diagnosis Comments BONE MARROW BIOPSY (STL) Routine 09/12/2023 9:30 AM AGRICULTURAL EQUIPMENT MECHANIC Illness, unspecified documented in this encounter Results * BONE MARROW BIOPSY (STL) (09/12/2023 9:30 AM AGRICULTURAL EQUIPMENT MECHANIC) Case Report Bone Marrow Patholog y Report Case: [id number] Authorizing Provider: Srinivasan Salgado MD Collected: 09/12/2023 09:30 AM Ordering Location: [facility] Care Pathology Lab Received: 09/13/2023 12:19 PM Pathologist: Corina Parks MD Specimens: A) - Bone Marrow Clot B) - Bone Marrow Core 09/14/2023 3:47 PM AGRICULTURAL EQUIPMENT MECHANIC U PATHOLOGY LAB Final Diagnosis Bone marrow, aspirate, clot section, and core biopsy: - Mildly hypocellular marrow for age with maturing trilineage hematopoiesis and mild involvement by plasma cell neoplasm (~15% of marrow cellularity). - See description. Peripheral blood smear: - Essentially normal smear. - See description. 09/14/2023 3:47 PM [facility] PATHOLOGY LAB at [address] AGRICULTURAL EQUIPMENT MECHANIC AP Comment Immunohistochemistry performed for CD138 to assess staining cells in an architectural context show ~15% of marrow cellularity to represent plasma cells. Overall findings are those of mild involvement by plasma cell neoplasm. 09/14/2023 3:47 PM [facility] PATHOLOGY LAB Peripheral Smear Description RBC: normocytic, normochromic, mild rouleaux formation WBC: normal in number and morphology Platelets: normal in number and morphology 09/14/2023 3:47 PM [facility] PATHOLOGY LAB Bone Marrow Aspirate Differential [...] no ring sideroblasts. 09/14/2023 3:47 PM [facility] PATHOLOGY LAB Bone Marrow Core Biopsy [...] to core biopsy. 09/14/2023 3:47 PM [facility] PATHOLOGY LAB Flow Cytometry Summary Bone marrow, flow cytometry ([id number]): - Minute lambda predominant CD138+/CD38+ plasma cell population detected (0.5% of overall events) 09/14/2023 3:47 PM [facility] PATHOLOGY LAB Clinical History Multiple myeloma. 09/14/2023 3:47 PM [facility] PATHOLOGY LAB Materials Received Received are 20 slide(s) and 3 blocks labeled [id number] along with a copy of the outside pathology report. The materials originate from [facility], [address] [place] [address] [address], [place] [id number]. All original materials are returned to the referring institution, along with a copy of our final report. 09/14/2023 3:47 PM [facility] PATHOLOGY LAB Pathologist Location at [facility] 09/14/2023 3:47 PM [facility] PATHOLOGY LAB Disclaimer The performance characteristics of all immunohistochemical and indirect immunofluorescence stains (if any) cited in this report were determined by the Histopathology Laboratory of [facility]. Some of these tests were developed by [...] attending (teaching) pathologist. 09/14/2023 3:47 PM [facility] PATHOLOGY LAB Embedded Images 09/14/2023 3:47 PM [facility] PATHOLOGY LAB Pathology/Cytology BONE MARROW SPECIMEN / Unknown 09/12/2023 9:30 AM AGRICULTURAL EQUIPMENT MECHANIC 09/13/2023 12:19 PM AGRICULTURAL EQUIPMENT MECHANIC Miscellaneous samples (specimen) BONE MARROW SPECIMEN / Unknown 09/12/2023 9:30 AM AGRICULTURAL EQUIPMENT MECHANIC 09/13/2023 12:19 PM AGRICULTURAL EQUIPMENT MECHANIC us Joe Salgado MD LAB - PATHOLOGY/CYT OLOGY ORDERABLES Final Result [facility] PATHOLOGY LAB [address] [facility] [place] [address], [facility] [phone] documented in this encounter Visit Diagnoses Diagnosis Illness, unspecified documented in this encounter
--- OUTSIDE RECORDS SUMMARY | 2025-09-10 08:41 | XMS_ITS | Clinical Summary ---
Author Organization [facility] [employer] Address [address] [place] [address] Care Team Providers Care Playroom Attendant Name Role Phone Unavailable Primary Care Provider Unavailabl e Source Comments [facility] [employer],non-owned Affiliates and Associated Physician Practices is amultiple site organization consisting of ambulatory clinics and hospital sitesin [place], [place], [place] and [place]. This disclosure is being madepursuant to the Care Everywhere program and may not contain all information available regarding this patient. Last updated 18.[facility] [employer] Social History Tobacco Use Types Packs/Day Years Used Date Smoking Tobacco: Never Assessed Comments Unknown Sex and Gender Information Value Date Recorded Sex Assigned at Not on file Legal Sex Female 3:50 PM SUPERVISOR EPOXY FABRICATION Gender Identity Not on file Sexual Orientation [...] of 3 - 19+ 3-dose series) 1994 Cervical Cancer Screening 02/06/1996 PAP SMEAR 02/06/1996 PAP with HPV 2005 DEPRESSION SCREENING 10/17/2024 PNEUMOCOCCAL VACCINE 50+ (1 of 1 - PCV) 2025 ZOSTER VACCINE (1 of 2) 2025 COVID-19 VACCINE (1 - 2024-2 6 season) 2025 INFLUENZA VACCINE (#1) 2025 HIB VACCINE [...]
--- OUTSIDE RECORDS SUMMARY | 2025-09-10 08:41 | XMS_ITS | Data Portability ---
Author Organization [facility] Address [address] [place] [address] Care Team Providers Care Tie Buyer Name Role Phone LARA ESPINO Primary Care Provider Assessment Encounter Date Assessment Date Assessment LastModified by Organization Details LastModified Time 04/28/2021 04/28/2021 noel well, f/u pending pathology [...] new symptoms. [email or web address] Not available 05/28/2024 09:34:32 06/03/2025 06/03/2025 Annual gynecological exam performed. Patient will come back in a year unless there are new symptoms. [email or web address] Not available 06/03/2025 10:52:21 Plan of Treatment Reminders Order Date Submit Date Provider Last Modified By Organization Details Last Modified Time Details Appointments None recorded. Lab pap, IG + HR HPV - HPV regardless but if HPV is positive need subtyping 16,18/45 add gc/ct/trich 2024 025 [facility] (Lab), [address], [place], [address], 5 07:48:27 Referral None recorded. Procedures None recorded. Surgeries None recorded. Imaging MAMMO, screening, digital, bilateral [address] [facility], [address], [place], [address], 5 04:02:13 MAMMO, screening, digital, bilateral [address] [facility], [address], [place], [address], 5 05:01:10 MAMMO, screening, digital, bilateral [email or web address] [place] [address], [address], [place], [address], 4 16:22:48 Medication Orders None recorded. Patient [...] 0151 First Scree n: Alaina linn, Zafar fragoso, CT Patho logis t: Miroslava Ayala MD Speci men: Scree jose Pap - Image d, Cervi x STATE MENT OF ADEQU ACY: Satis facto ry for evalu ation Trans forma tion zone compo nent absen t FINAL DIAGN OSIS: Negat elvie for Squam ous Intra epith elial Lesio n Endom etria l cells in a woman over 45 years of age Elect josue salinas d by Miroslava Ayala MD on [...] malit ies. Clini josh magnolia hannah is cherelle duque. Not Available [facility] (Lab) [address], [place], [address], 04/03/2021 15:45:27 04/28/20 21 04/28/2021 SURGI JOSH PATHO LOGY surgical pathology ([facility] SEE RESULT S BELOW CASE REPOR T: Surgi josh Patho logy Repor t Case: [id number] Autho rylan mclaughlin Provi zach: Taty [...] ----- ----- ----- ----- ----- ---- CLINI JOSH INFOR MATIO N: not provi ded MICRO [...] ed by Ana Erickson on Not Available [facility] (Lab) [address], [place], [address], 04/29/2021 12:04:08 04/28/20 21 04/28/2021 pregn brad test, urine HCG negati ve Not Available [address], [place], [address], 04/28/2021 09:37:58 05/10/20 22 05/10/2022 IMAGE GUIDE D PAP AND HPV REGAR DLESS image guided Pap, HPV regardless of Pap result SEE RESULT S BELOW CASE REPOR T: Cytol ogy Gynec ologi josh Repor t Case: [id number] Autho rylan mclaughlin Provi zach: Portillo Nam Colle cted: 05/10 1742 SERVICES MANAGER Order ing Locat ion: [place] Patho logy Recei janki: 05/11 0141 First Scree n: Rupal Kwok, CT Speci men: Rao garcia Pap - Image d, Cervi x STATE MENT OF ADEQU ACY: Satis facto ry for evalu ation Trans forma tion zone compo nent prese nt FINAL DIAGN OSIS: Negat elvie for Intra epith elial Radha hannah or Neal keith (NIL) . Elect josue [...] is recom ying d, as clini eliane warrzeyad nted. Not Available [facility] [address] [place], [address], 05/14/2022 09:58:01 05/23/20 23 05/23/2023 IMAGE GUIDE D PAP AND HPV REGAR DLESS image guided Pap, HPV regardless of Pap result SEE RESULT S BELOW CASE REPOR T: Cytol ogy Gynec ologi josh Repor t Case: [id number] Autho rylan mclaughlin Provi zach: Kiara Hanks, SANTOSH Colle cted: 05/23 1022 Order ing Locat [...] for Intra epith elial Lesio n or Malig inna (NIL) . Elect josue christianson rita d by Ortiz enciso ak, Reggie ay, CT on 023 at 4:57 PM ----- [...] as clini eliane medina nted. Not Available [facility] (Lab) [address], [place], [address], 05/24/2023 18:01:08 05/28/20 24 05/28/2024 IMAGE GUIDE D PAP AND HPV REGAR DLESS image guided Pap, HPV regardless of Pap result SEE RESULT S BELOW CASE REPOR T: Cytol ogy Gynec ologi josh Repor t Case: [id number] Autho rylan g Provi zach: Kiara Hanks, SANTOSH Colle cted: 05/28 0952 Order ing Locat ion: [place] Patho logy Recei janki: 05/29 0807 First Scree n: Nessa Acuna ret, CT Speci men: Scree jose Pap - Image d, Cervi x STATE MENT OF ADEQU ACY: Satis facto ry for evalu ation Trans forma tion zone compo nent prese nt ----- ----- ----- ----- ----- ----- ----- ----- ----- ----- ----- ----- ----- ----- ----- ----- ----- ---- FINAL DIAGN OSIS: Negat elvie for Intra epith eliskinny hannah or Neal keith ([facility]) . Jamal salinas d by Nessa Acuna ret, CT [...] as clini eliane medina nted. Not Available [facility] (Lab) [address], [place], [address], 06/03/2024 06:41:06 Result Notes None recorded. Problems Name Problem SNOMED Code Status Onset Date Resolution Date Notes Provider Name and Address Organization Details Recorded Time Speciali zed medical examinat ion Completed 201104/01/2021 Routine gynecolo gical examinat ion;Prac rosie ID: 0001 Azul Wynn eusebio [facility] 1 10:00:08 Screenin g for malignan t neoplasm of cervix Completed 201104/01/2021 Pap Smear;Pr actice ID: 0001 Azul kaplan, [facility] 09:59:56 Dysfunct ional uterine bleeding Completed 201204/01/2021 Other disorder s of menstrua tion and other abnormal bleeding from female genital tract;Re corded Elsewher e: No Locat ion: [facility] S ource: EHR Mannequin Mounter zonia: N Practi ce ID: 0001 Papito lable Time: 11:15:00 AM Azul Wynn eusebio, [facility] 09:59:37 Premenop ausal menorrha miguel Completed 201204/01/2021 Premenop ausal menorrha miguel;Prac rosie ID: 0001 Azulzeina Wynn [facility], [facility] 09:59:54 Uses IUD (intraut erine device) contrace ption [id number] Completed 201204/01/2021 Surveill ance of intraute rine contrace ptive device;P ractice ID: 0001 Azul Wynn [facility] 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 10:00:06 Screenin g for malignan t neoplasm of rectum Completed 201504/01/2021 Encounte r for screenin g for malignan t neoplasm of rectum;P ractice ID: 0001 Azul Wynn eusebio [facility] 09:59:[address] Concept Completed 201604/01/2021 Encntr for general adult medical exam w/o abnormal findings ;Recorde d Elsewher e: No [facility]: EHR Mannequin Mounter zonia: N Practi ce ID: 0001 Papito lable Time: 09:30:00 AM Azul Wynn [facility] 1 10:00:01 Trichomo nal vulvovag initis [id number] Completed 201604/01/2021 Trichomo nal vulvovag initis;P ractice ID: 0001 Azul Wynn [facility] 10:00:14 Syphilis test finding [id number] Completed 201604/01/2021 Encntr screen for infectio ns w sexl mode of transmis s;Practi ce ID: 0001 Azul Wynn [facility] 10:00:11 Abnormal uterine bleeding [id number] 100 Completed 201704/01/2021 Other specifie d abnormal uterine and vaginal bleeding ;Practic e ID: 0001 Azul Wynn [facility] 09:59:24 Finding of menstrua l bleeding Completed 201704/01/2021 Excessiv e and frequent menstrua tion with regular cycle;Pr actice ID: 0001 Azul Wynn [facility] 10:00:19 Anemia 603814372 Completed 201704/01/2021 Anemia;R ecorded Elsewher e: No Locat ion: [facility] S ource: EHR Mannequin Mounter zonia: N Practi ce ID: 0001 Papito lable Time: 10:10:00 AM Azul Wynn [facility] 1 09:59:26 Insertio n of intraute rine contrace ptive device Completed 201704/28/2021 Encounte r for insertio n of intraute rine contrace ptive device;P ractice ID: 0001 Azul kaplan, [facility] 1 09:30:05 Pregnanc y test negative [id number] Completed 201704/01/2021 Encounte r for pregnanc y test, result negative ;Practic e ID: 0001 Azul kaplan, [facility] 1 09:59:51 Disorder of intraute rine contrace ptive device Completed 201904/28/2021 [facility] compl of intraute rine contrace ptive device, init encntr;P ractice ID: 0001 Azul kaplan, [facility] 09:30:03 Finding of pattern of menstrua l cycle Completed 201904/01/2021 Menometr orrhagia ;Recorde d Elsewher e: No Locat ion: [facility] S ource: EHR Mannequin Mounter zonia: N Practi ce ID: 0001 Papito lable Time: 08:45:00 AM Azul kaplan, [facility] 1 09:59:40 Imaging of abdomen abnormal [id number] Completed 201904/01/2021 Abn findings on dx imaging of abd regions, inc retroper iton;Rec orded Elsewher e: No Locat ion: [facility] S ource: EHR Mannequin Mounter zonia: N Practi ce ID: 0001 Papito lable Time: 03:06:45 PM Azul kaplan, [facility] 1 09:59:42 Problem Notes None recorded. Procedures Surgical History Date Name Laterality Status Provider Name and Address Organization Details Recorded Time 04/28/20 21 Endometrial Biopsy completed Taty Rojo CNM [address], [place], [address], [facility] 04/28/2021 10:02:44 04/28/20 21 endometrial biopsy completed Azul Wynn [facility] 04/28/2021 09:31:00 11/25/19 18 [facility] 07/22/2020 13:53:08 Imaging Results None recorded. [...] Prescrib ed Elsewher e: Yes Loca tion: [facility] odify By: alvarado Raya ntdarek DateTime : 11/20/19 12 06:34:49 PM Not Available Not Available Not Available clonidine HCl 0.3 mg tablet TAKE 1 TABLET BY MOUTH ONCE DAILY IN THE MORNING AND 1/2 (ONE-SATURNINO F) ONCE DAILY IN THE EVENING active Not Available Not Available No t Available amlodipin e 2.5 mg tablet take 1 tablet by oral route every day 09/12 completed Prescrib ed Elsewher e: Yes Loca tion: [facility] odify By: nila brannon DateTime : 11/20/19 12 06:34:49 PM Not Available Not Available Not Available potassium 99 mg tablet 11/23 completed Prescrib ed Elsewher e: Yes [facility] odify By: verito brannon DateTime : [...] ed Elsewher e: No Locat ion: [facility] odify By: darinel mccann DateTime : 01/03/20 13 01:47:02 PM Not Available Not Available Not Available Flagyl 500 mg tablet take 4 tablets by mouth at one time 06/10 completed Prescrib ed Elsewher e: No Locat ion: [facility] odify By: verito brannon DateTime : 06/09/20 17 02:38:52 PM Not Available Not Available Not Available losartan 25 mg tablet take 1 tablet by oral route every day 04/01 completed Prescrib ed Elsewher e: Yes Loca tion: [facility] odify By: nila Leigh ncounter DateTime : 09/12/20 18 09:30:00 AM Not Available Not Available Not Available Provera 10 mg tablet take 1 tablet by oral route 2 times every day until bleeding subsides 09/12 completed Prescrib ed Elsewher e: No Locat ion: [facility] odify By: nila brannon DateTime : 11/25/19 18 10:10:06 AM Not Available Not Available Not Available norethind renay (contrace ptive) 0.35 mg tablet TAKE 1 TABLET BY MOUTH ONCE DAILY 06/18 completed Switched to Slynd Not Available Not Available Not Available lisinopri l 2.5 mg tablet take 1 tablet by oral route every day 09/12 completed Prescrib ed Elsewher e: Yes Loca tion: [facility] odify By: nila kentunter DateTime : 11/23/19 [...] Updated DateTime 04/28/2021 166.37 cm 28 kg/m2 34537.3 g 192/123 mm[Hg] 180/100 mm[Hg] Azul Wynn [facility] 09:36:39 Date Recorded Body height Body mass index (BMI) Body weight Systolic And Diastolic Provider Name and Address Organization Details Last Updated DateTime 05/10/2022 166.37 cm 26.9 kg/m2 38377.15 g 126/68 mm[Hg] Corina Chowdhury [facility] 05/10/2022 10:42:55 Date Recorded Body height Body mass index (BMI) Body weight Systolic And Diastolic Provider Name and Address Organization Details Last Updated DateTime 05/23/2023 166.37 cm 25.2 kg/m2 42680.22 g 124/84 mm[Hg] Aileen Manzanares [facility] 05/23/2023 10:46:21 Date Recorded Body height Body mass index (BMI) Body weight Systolic And Diastolic Provider Name and Address Organization Details Last Updated DateTime 05/28/2024 165.1 cm 25.8 kg/m2 11517.82 g 134/84 mm[Hg] Mamie Jimenez [facility] 05/28/2024 09:50:51 Date Recorded Body height Body mass index (BMI) Body weight Systolic And Diastolic Provider Name and Address Organization Details Last Updated DateTime 06/03/2025 165.1 cm 25.5 kg/m2 94707.63 g 137/82 mm[Hg] Katharine Parada [facility] 06/03/2025 10:52:52 Social History Question Answer Notes LastModified by Organizat ion Details LastModified Time Tobacco Smoking Status Former Smoker Aileen Manzanares [facility], [facility] 05/23/2023 10:46:42 Do You Have An Advance Directive? Yes [email or web address] Information n ot available 04/01/2021 Are You Blind Or Do You Have Difficulty Seeing? No [email or web address] Information n ot available 04/01/2021 What Is Your Level Of Caffeine Consumption? Moderate [email or web address] Information not available 04/01/2021 In The 14 Days Before Symptom Onset, Have You Had Close Contact With A Laboratory-confirm ed COVID-19 While That Case Was Ill? No [email or web address] Information n ot available 04/01/2021 In The 14 Days Before Symptom Onset, Have You Had Close Contact With A Person Who Is Under Investigation For COVID-19 While That Person Was Ill? No [email or web address] Information not available 04/01/2021 Have You Been To An Area Known To Be High Risk For COVID-19? No [email or web address] Information not available 04/01/2021 Are You Deaf Or Do You Have Serious Difficulty Hearing? No [email or web address] Information not available 04/01/2021 What Type Of Diet Are You Following? REGULAR [email or web address] Information n ot available 04/01/2021 What Is The Highest Grade Or Level Of School You Have Completed Or The Highest Degree You Have Received? CR60575-7 [email or web address] Information not available 04/01/2021 Are There Any Guns Present In Your Home? Yes [email or web address] Information not available 04/01/2021 What Was The Date Of Your Most Recent Tobacco Screening? 04/28/2021 Information not available 05/23/2023 Do You Use Protection During Sex? Usually [email or web address] Information not available 04/01/2021 Do You Use Your Seat Belt Or Car Seat Routinely? Yes Information not available 04/01/2021 Do You Have Smoke And Carbon Monoxide Detectors In Your Home? Yes [email or web address] Information not available 04/01/2021 How Much Tobacco Do You Smoke? No [email or web address] Information not available 07/22/2020 Do You Use Sunscreen Routinely? No [email or web address] Information not available 04/01/2021 Have You Used IV Drugs? No [email or web address] Information not available 04/01/2021 Do You Have Difficulty Walking Or Climbing Stairs? No Information not available 05/23/2023 Sex: Unknown Functional Status Question Answer Note LastModified by Organizat ion Details LastModified Time Do you use any illicit or recreational drugs? No [email or web address] Information not available 04/01/2021 What is your level of alcohol consumption? None quit 2014 [email or web address] Information not available 04/01/2021 Do you or have you ever used smokeless tobacco? Never used smokeless tobacco Information not available 05/23/2023 Are you able to walk independently without assistance or assistive devices? YESWOREST [email or web address] Information not available 04/01/2021 Are you able to care for yourself independently? 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 No Information not available 05/23/2023 Do you or have you ever used e-cigarettes or vape? Never used electronic cigarettes Information not available 05/23/2023 What is your exercise level? Occasional Information not available 07/22/2020 Mental Status Question Answer Note LastModified by Organization D etails LastModified Time Do you feel stressed (tense, restless, nervous, or anxious, or unable to sleep at night)? [id number] Information not available 05/23/2023 Family History Relationship [...] Not available 02/12 14:59:00 Maternal Aunt Malignant neoplasm of pancreas [email or web address] Not available 04/2023 10:46:28 Maternal Grandmother Hypertensive disorder [email or web address] Not available 02/12 14:59:32 Medical History Condition Response Anemia Y History of STI Y History of abnormal pap Y Cancer Y Kidney or Bladder Problems Y Hypertension Y Kidney Disease Y Gynecological History Statement/Question Response Date of Last Mammogram Date of LMP N Was last menstrual period normal N STIs/STDs Y Date of Last Colonoscopy BCPs Desired Control Method BCPs Abnormal Pap Y On BCP's at Conception? Y HPV Vaccine N Current Control Method None Age at First Child 27 Sexually Active? N Menses Monthly N Date of DEXA bone scan Age of first menstrual cycle 15 Date of Last Pap Smear Sexual Problems? N LMP Unknown N Obstetrics History GPAL:G 2 P 1 0 1 1 Type Value Full Term 1 Induced 1 Living 1 Total 2 Past Encounters Encounter ID Performer Location Encounter Start Date Encounter Closed Date Diagnosis/Indication Diagnosis SNOMED-CT Code Diagnosis ICD10 Code Diagnosis IMO Codes Diagnosis Note [id number] Taty Rojo [place] [address],[place] [address] 07/22/2020 10:57:35 07/22/2020 18:01:11 Menorrhagia 898810723 N92.0 Hypertensive disorder 38 263020 I10 [id number] Taty Rojo [place] [address],[place] [address] 04/01/2021 09:35:00 04/01/2021 10:09:00 Gynecologic examination 73212974 Z01.419 [id number] Taty Rojo [place] [address],[place] [address] 04/28/2021 09:16:54 04/28/2021 10:04:45 Specimen with abnormal presence of endometrial cells 313134843 R87.619 [id number] [facility] [address],[place] [address] 05/10/2022 10:11:36 05/10/2022 11:02:59 Gynecologic examination 38603749 Z01.419 Suggested Calcium with Vitamin D 1200-1500m g daily. Patient advised to get an annual flu shot in the fall and she could obtain at [facility] or [facility] take care clinic. Also to obtain TDap [...] Screen na Routine Labs UTD PCPMammo ordered [facility] ion care management 625124228 Z30.9 CUrrently on SLYNDDoing extremely wellGet's this Rx from the company directly. [id number] LISETTE Ortiz [place] [address] [address] 05/23/2023 10:27:00 05/23/2023 11:06:41 Gynecologic examination 68588086 Z01.419 Suggested Calcium with Vitamin D 1200-1500m g daily. Patient advised to get an annual flu shot in the fall and she could obtain at [facility] or [facility] care clinic. Also to obtain TDap [...] or respond to this email. WWEBC - silver happy with slyndpap updatedSTI testing declinedma mmogram order givenUTD with PCPRTC in 1 year or sooner if needed [facility] ion care management 617561368 Z30.9 Screening for malignant neoplasm of breast 573556786 Z12.39 [id number] LISETTE Ortiz [place] [address] [address] 05/28/2024 09:38:16 05/28/2024 14:12:17 Gynecologic examination 34799669 Z01.419 WWEpap updatedde lined STI screenmamm ogram ordered and encouraged [...] answered. Screening for malignant neoplasm of breast 553374650 Z12.39 [facility] 188929946 Z30.9 upon chart review found pt has been diagnosed with kidney diseasecur rently on slynd, recommend alternativ e method (mini-pill , IUD) as slynd is generally avoided in pts with renal impairment [id number] LISETTE Ortiz [place] [address] [address] 06/03/2025 10:19:51 06/03/2025 12:06:17 Gynecologic examination 75891155 Z01.108 [id number] EB - declinedPa p - done todaySTI screen - gc/ct/tric h testing added to papMammogr am - order givenColon cancer screening - options reviewed, order for cologuardD exa - n/aRoutine labs - PCPRTC in 1 yr or sooner if needed Do monthly self breast exams.It is advised to get annual flu shot in the fall and she could obtain at local pharmacy. If you haven't received the Tdap vaccine in the last 10 years you should obtain one as well.Have mammogram yearly, bone density every 2-3 years and stay up to date on colon cancer screening. Engage in regular exercise. Avoid tobacco and illicit drugs. This lifestyle behavior pattern will lead to less health conditions and longer life span. If BMI greater than 25 dietary consult advised.Qu estions have been answered. Screening mammography 24 937524 Z12.31 [id number] Screening for malignant neoplasm of colon 167770680 Z12.11 539082 Venereal d isease screening 042852078 Z11.3 04892 Health Concerns Section Related Observation LastModified by Organization Detai ls LastModified Time None Recorded Concern Status LastModified by Organization Details LastModified Time None Recorded Advance Directives Directive Y: Payers Insurance Date Sequence Insurance Name Policy Number Policy Joy Covered Member ID Joy Member ID Guarantor Name 05/23/2023 *SELF PAY* Ghazala Jo 05/23/2023 SLIDING FEE SCHEDULE - DISCOUNT Megan Jo 05/31/2025 1 [id number] Megan Jo [id number] Megan Jo 05/03/2025 1 [employer] [facility] (PPO) [id number] Mgean Jo [id number] Megan Jo Notes Date Note Type Note Provider Name and Address Organization Details Recorded Time 1 text/html ROS as noted in the HPI endometrial cells on pap here for endometrial biopsy reviwed procedure, bp elevated, just took bp meds, will monitor at home and with pcp Taty Rojo, STANLEY [address], [place], [address], [facility] 04/28/2021 10:03:56 2 text/html Annual GYNReported by PatientHistoryFor history, patient reportsno gynecologic complaints.Genitourinary symptomsFor menstrual cycle, patient reportsnormal menses. For urinary symptoms, patient reportsno hematuriaandno incontinence. For vulva, patient reportsno genital lesion. For vagina, patient reportsnormal vaginal discharge.Breast symptomsFor breast, patient reportsno breast pain,no breast lump, andno nipple discharge.ContraceptionFo r current contraception, patient reportssatisfied with current contraceptionandoral contraceptives.Endocrine symptomsFor sexual complaints, patient reportsno sexual complaints,no pain during intercourse, andnormal libido. For menopausal symptoms, patient reportsno menopausal symptomsandnormal vaginal lubrication.Psychological symptomsFor psychological symptoms, patient reportsno depression,no anxiety, andno pmdd.Preventative measuresFor preventive measures, patient reportsencourage self breast examination,encourage regular exercise,encourage no tobacco use,encourage regular mammograms starting age 40,followed with yearly pap smears,needs to schedule mammogram, andup to date on colonoscopy screening. Jade Cobb, LISETTE- [address], [place], [address], [facility] 05/10/2022 10:57:00 3 text/html Annual GYNReported by PatientGenitourinary symptomsFor menstrual cycle, patient reportsnormal menses. For urinary symptoms, patient reportsno hematuriaandno incontinence. For vulva, patient reportsno genital lesion. For vagina, patient reportsnormal vaginal discharge.Breast symptomsFor breast, patient reportsno breast pain,no breast lump, andno nipple discharge.ContraceptionFo r current contraception, patient reportssatisfied with current contraceptionandoral contraceptives.Endocrine symptomsFor sexual complaints, patient reportsno sexual complaints,no pain during intercourse, andnormal libido. For menopausal symptoms, patient reportsno menopausal symptomsandnormal vaginal lubrication.Psychological symptomsFor psychological symptoms, patient reportsno depression,no anxiety, andno pmdd.Preventative measuresFor preventive measures, patient reportsencourage self breast examination,encourage regular exercise,encourage no tobacco use, andencourage regular mammograms starting age 40. LISETTE Ortiz [address], [place], [address], [facility] 05/23/2023 11:01:50 4 text/html Annual GYNReported by PatientGenitourinary symptomsFor menstrual cycle, patient reportsnormal menses. For urinary symptoms, patient reportsno hematuriaandno incontinence. For vulva, patient reportsno genital lesion. For vagina, patient reportsnormal vaginal discharge.Breast symptomsFor breast, patient reportsno breast pain,no breast lump, andno nipple discharge.ContraceptionFo r current contraception, patient reportssatisfied with current contraceptionandoral contraceptives(slynd).End ocrine symptomsFor sexual complaints, patient reportsno sexual complaints,no pain during intercourse, andnormal libido. For menopausal symptoms, patient reportsno menopausal symptomsandnormal vaginal lubrication.Psychological symptomsFor psychological symptoms, patient reportsno depression,no anxiety, andno pmdd.Preventative measuresFor preventive measures, patient reportsencourage self breast examination,encourage regular exercise,encourage no tobacco use, andencourage regular mammograms starting age 40.49yo WWElast pap 05/2023 : nilm, HPV (-)BC - slynd, doing wellmammogram - has never had one pt states being evaluated for possible kidney issues LISETTE Ortiz [address], [place], [address], [facility] 05/28/2024 14:38:00 5 text/html Annual GYNReported by PatientGenitourinary symptomsFor menstrual cycle, patient reportsperimenopausal. For urinary symptoms, patient reportsno hematuriaandno incontinence. For vulva, patient reportsno genital lesion. For vagina, patient reportsnormal vaginal discharge.Breast symptomsFor breast, patient reportsno breast pain,no breast lump, andno nipple discharge.Endocrine symptomsFor sexual complaints, patient reportsno sexual complaints,no pain during intercourse, andnormal libido. For menopausal symptoms, patient reportsno menopausal symptomsandnormal vaginal lubrication.Psychological symptomsFor psychological symptoms, patient reportsno depression,no anxiety, andno pmdd.Preventative measuresFor preventive measures, patient reportsencourage self breast examination,encourage regular exercise,encourage no tobacco use, andencourage regular mammograms starting age 40.50yo wweperimenopausallast pap 2023 : wnlno mammogram hxno colon CA screening hx Katharine kaplan, [facility] 06/03/2025 15:22:10 OBGyn Episode Ob Episode Information Episode Created Date Number of Fetuses Patient Bloodtype Patient rh Status Prepregnancy Weight lbs Domestic Partner Domestic Partner Phone Father Name Case Fitter Status 07/22/20 20 1 CLOSED Fetus Data [...] Domestic Partner Domestic Partner Phone Father Name Case Fitter Status 07/22/20 20 1 CLOSED Fetus Data [...]
--- OUTSIDE RECORDS SUMMARY | 2025-09-10 08:41 | XMS_ITS | Encounter Summary ---
Author Organization 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 Name Role Phone Unavailable Primary Care Provider Unavailabl e Encounter Details Date Type Department Care Team (Late st Contact Info) Description 09/12/2023 Lab Requisition [facility] - Pathology Lab [address] [place] [id number] Joe Salgado MD [address] [place] [id number] Multiple myeloma not having achieved remission Social History Tobacco Use Types Packs/Day Years Used Date Smoking Tobacco: Never Assessed Comments Unknown Sex and Gender Information Value Date Recorded Sex Assigned at Not on file Legal Sex Female 3:50 PM MYCOLOGY TEACHER Gender Identity Not on file Sexual Orientation Not on file documented as of this encounter Plan of Treatment Not on file documented as of this encounter Procedures Procedure Name Priority Date/Time Associated Diagnosis Comments FLOW CYTOMETRY BONE MARROW Routine 09/12/2023 9:30 AM MYCOLOGY TEACHER Multiple myeloma not having achieved remission ([facility]) documented in this encounter Results * FLOW CYTOMETRY BONE MARROW (09/12/2023 9:30 AM MYCOLOGY TEACHER) Case Report Flow Cytometry Case: [id number] Authorizing Provider: Srinivasan Salgado MD Collected: 09/12/2023 09:30 AM Ordering Location: [facility] Care Pathology Lab Received: 09/12/2023 04:00 PM Pathologist: Corina Parks MD Specimen: Bone Marrow 09/13/2023 10:05 AM MYCOLOGY TEACHER [facility] PATHOLOGY LAB Final Diagnosis Bone marrow, flow cytometry: - Minute lambda predominant CD138+/CD38+ plasma cell population detected (0.5% of overall events) 09/13/2023 10:05 AM [facility] PATHOLOGY LAB at [address] MYCOLOGY TEACHER Flow Cytometry Interpretation Viability: 92% B-cells: polytypic, kappa:lambda ratio 1.8:1 T-cells: not increased Blasts: not increased, 0.63% of overall events Plasma cells: monoclonal, lambda-restricted , subset is CD56 positive, aberrant loss of CD19 in a subset. A bone marrow aspirate smear prepared from the flow cytometry specimen has been reviewed for software quality assurance engineer purposes. 09/13/2023 10:05 AM [facility] PATHOLOG[facility] LAB Flow Cytometry Results Differential Result Comment Flow Cell Count /uL 36,900 Total Viability % 92.0 Lymphocytes % 25 Dim CD45 Region % 3 Monocytes % 8 Granulocytes % 65 09/13/2023 10:05 AM [facility] Reason for test Multiple myeloma not having achieved remission (CMS/HCC) 203.00 09/13/2023 10:05 AM [facility] Client Specimen ID # [id number] 09/13/2023 10:05 AM [facility] Number of markers 14 were performed. A-2 Flow CD10 A-3 Flow CD13 A-5 Flow CD20 A-13 Flow CD117 A-14 FLOW CD138 A-1 Flow CD5 A-4 Flow CD19 A-6 Flow CD33 A-7 Flow CD34 A-8 Flow CD45 A-11 Flow CD38 A-12 Flow CD56 A-9 [place]+CD19+ A-10 Lambda+CD19+ 09/13/2023 10:05 AM [facility] Pathologist Location at [facility] 09/13/2023 10:05 AM [facility] PATH[facility] LAB Disclaimer Test performed at [facility], [address] [place] [address], [id number]. *The established laboratory minimum viability is 70%. [...] high complexity clinical testing. 09/13/2023 10:05 AM [facility] PATH[facility] LAB Embedded Images 10:05 AM [facility] LAB Pathology/Cytolo gy BONE MARROW SPECIMEN / Unknown 09/12/2023 9:30 AM MYCOLOGY TEACHER 09/12/2023 4:00 PM MYCOLOGY TEACHER Joe Salgado MD LAB - PATHOLOGY/CYT OLOGY ORDERABLES Final Result [facility] PATH[facility] [address] [phone] documented in this encounter Visit Diagnoses Diagnosis Multiple myeloma not having achieved remission (HCC) Multiple myeloma, without mention of having achieved remission documented in this encounter
[2025-09-10 08:52] LABS: Hematocrit 42.8 % (37.0-47.0); Hemoglobin 13.8 g/dL (12.0-15.0); Immature Granulocyte Percent A 0.2 % (0-0.5); Lymphocytes Absolute Auto 1.58 K/mm3 (0.9-3.2); Mean Corpuscular HGB Conc 32.2 g/dl (32-36); Mean Corpuscular Hemoglobin 26.9 pg (26-34); Mean Corpuscular Volume 83.4 fl (80-100); Nucleated Red Blood Cells Absolute Auto 0.000 K/mm3 (0.0-0.012); Nucleated Red Blood Cells Perc 0.0 % (0.0-0.2); Platelet Count Result 209 k/mm3 (150-375); Red Blood Count 5.13 M/mm3 (4.2-5.4); White Blood Count 4.7 K/mm3 (4.5-10.0)
[2025-09-10 09:25] LABS: Alanine Aminotransferase 14 U/L (6-35); Albumin Level 4.2 g/dL (3.5-5.1); Alkaline Phosphatase 58 U/L (38-126); Anion Gap 12 mmol/L (4-12); Aspartate Amino Transferase 27 U/L (14-36); Bilirubin,Total 0.4 mg/dL (0.2-1.3); Blood Urea Nitrogen 24 mg/dL (7-17); Calcium 10.7 mg/dL (8.4-10.2); Carbon Dioxide 28 mmol/L (22-30); Chloride 101 mmol/L (98-107); Estimated Glomerular Filt Rate 40; Glucose 123 mg/dL (65-110); Potassium 3.7 mmol/L (3.4-5.0); Sodium 141 mmol/L (137-145); Total Protein 8.2 g/dL (6.3-8.2)
[2025-09-10 09:39] LABS: Immunoglobulin G 881 mg/dL (700-1600); Immunoglobulin M < 25 mg/dL (40-230)
[2025-09-10 10:25] LABS: Immunoglobulin A 2006 mg/dL (70-400)
[2025-09-11 13:09] LABS: Albumin 3.6 g/dL (2.9-4.4); Alpha-1-Globulin 0.2 g/dL (0.0-0.4); Alpha-2-Globulin 0.7 g/dL (0.4-1.0); Gamma Globulin 0.7 g/dL (0.4-1.8)
[2025-09-11 14:08] LABS: Free Lambda Lt Chains, Serum 276.6 mg/L (5.7-26.3); Kappa/Lambda Ratio, Serum 0.06 (0.26-1.65)
== END 2025-09-10 08:32 | disposition home or self-care (01) ==
PROVIDERS: PCP Emergency Medicine; Visit Provider Internal Medicine Hematology & Oncology
DX: C90.00 Multiple myeloma not having achieved remission (principal)
CPT/HCPCS: 36415; 80053; 82784; 83521; 84155; 84165; 85025